=== PATIENT | male | born 1945 | race Caucasian/White ===

== ENCOUNTER 2020-04-17 09:40 | Emergency (ER) | payer MEDICARE, SELFPAY ==
--- NOTE | ~2020-04-17 | CT_ITS ---
EXAMINATION: CT abdomen pelvis w con DATE: 04/17/2020 10:45 INDICATION: Generalized abdominal pain. Constipation. TECHNIQUE: Computed tomography (CT) of the abdomen and pelvis was performed with 100 cc Omnipaque 350 intravenous contrast. Automated exposure control and iterative reconstruction technique were employe d. Exam dose: 1059.10 mGy-cm total exam DLP. COMPARISON: 01/16/2013 CT chest abdomen FINDINGS: Stable 4 mm pleural-based middle lobe nodular density, unchanged since 01/16/2013. Multiple calcified pulmonary granulomas. No infiltrate or consolidation in the lower lung zones. Mild emphysem atous changes. Heart size is normal. No pericardial or pleural effusion. No hepatic space-occupying mass lesion. There is a focal calcification at the gallbladder wall versus gallstone, stable since 01/16/2013. No gallbladder wall thickening. No pericholecystic fluid or stran ding. No bile duct dilatation. The pancreatic duct measures up to 5 mm. Up to 5.5 and 10 mm hypoenhancing areas in the pancreatic uncinate process may represent small pseudo cysts or intraductal papillary mucinous neoplasm, mucinous cystic neoplasm, left common common: serou s cystadenoma or neuroendocrine tumor. Normal morphology of the adrenal glands. Several up to 1.5 cm right renal cyst. Several up to 1.3 cm left renal cyst. At least one punctate nonobstructing renal calculus is suggeste d bilaterally. There are some arterial calcifications of the kidneys. No ureteral calculus. There is diffuse thickening of the urinary bladder wall. There is prostate enlargement and calcificat ions. Up to 3.8 cm fusiform infrarenal abdominal aortic aneurysm. Common iliac artery aneurysm measuring up to 3 cm diameter bilaterally. There is extensive calcificat ion of the iliac and femoral arteries. Small fat-containing left inguinal hernia. No bowel obstruction or bowel wall thickening, pneumatosis or intraperitoneal free air. Normal append ix. Status post L4-5 posterior surgical spinal fusion. No suspicious osteolytic or osteoblastic lesions are suggested. Small hemangioma of T12 vertebral bod y. IMPRESSION: Up to 3.8 cm fusiform infrarenal abdominal aortic aneurysm 3 cm bilateral common iliac artery aneurysms Gallbladder wall calcification versus less likely gallstone; consider gallbladder ultrasound for more definitive evaluation Up to 5.5 mm 10 mm hypoenhancing areas in the pancreatic uncinate process and multiple differential d iagnosis given above Bilateral renal cysts Probable small punctate calculus of each kidney Prostate enlargement and calcifications; diffuse thickening of the urinary bladder wall Emphysema Reviewed, dictated and finalized at [facility] Reviewed, dictated and finalized at [facility] [employer]IC[employer] IMPRESSION: Up to 3.8 cm fusiform infrarenal abdominal aortic aneurysm 3 cm bilateral common iliac artery aneurysms Gallbladder wall calcification versus less likely gallstone; consider gallbladd er ultrasound for more definitive evaluation Up to 5.5 mm 10 mm hypoenhancing areas in the pancreatic uncinate process and m ultiple differential diagnosis given above Bilateral renal cysts Probable small punctate calculus of each kidney Prostate enlargement and calcifications; diffuse thickening of the urinary blad corine wall Emphysema
--- NOTE | 2020-04-17 09:47 | ECG_ITS ---
Measurements Intervals [place] Rate: 77 P: 24 FL: 188 QRS: -2 QRSD: 106 T: 59 QT: 387 QTc: 440 Interpretive Statements SINUS RHYTHM WITH MARKED SINUS ARRHYTHMIA BORDERLINE ECG Electronically Signed On 04-17-2020 10:00:23 INTAKE ASSESSOR by Jed Tariq D.O.
[2020-04-17 10:03] VITALS: BP 113/75; PULSE 84; RESP 17; TEMP 36.6; O2SAT 96
[2020-04-17 10:07] VITALS: BP 133/71; PULSE 66; RESP 14; O2SAT 95
--- NOTE | 2020-04-17 10:07 | PC.NURSE ---
PT AWARE OF NEED FOR URINE SAMPLE, UNABLE TO GO AT THIS TIME, REFUSING CATH.
[2020-04-17 10:08] LABS: Basophils Percent Auto 0.7 % (0.2-1.2); Eosinophils Percent Auto 0.5 % (0-4.4); Hematocrit 40.3 % (42.0-52.0); Hemoglobin 13.9 g/dL (14.0-18.0); Immature Granulocyte Absolute 0.01 K/mm3 (0.00-0.031); Immature Granulocyte Percent A 0.2 % (0-0.5); Lymphocytes Absolute Auto 0.72 K/mm3 (0.9-3.2); Lymphocytes Percent Auto 12.7 % (18.3-44.2); Mean Corpuscular HGB Conc 34.5 g/dl (32-36); Mean Corpuscular Hemoglobin 31.3 pg (26-34); Mean Corpuscular Volume 90.8 fl (80-100); Mean Platelet Volume 11.3 fl (7.4-10.4); Monocytes Absolute Auto 0.6 K/mm3 (0.1-0.6); Monocytes Percent Auto 10.8 % (2.6-8.5); Neutrophils Absolute Auto 4.2 K/mm3 (1.3-6.7); Neutrophils Percent Auto 75.1 % (45.5-73.1); Platelet Count Result 147 k/mm3 (150-375); Red Blood Count 4.44 M/mm3 (4.6-6.20); Red Cell Distribution Width 12.8 % (11.5-14.5); White Blood Count 5.7 K/mm3 (4.5-10.0)
[2020-04-17 10:18] LABS: Alanine Aminotransferase 17 U/L (4-50); Albumin Level 3.6 g/dL (3.5-5.1); Alkaline Phosphatase 66 U/L (38-126); Anion Gap 4 mmol/L (8-16); Aspartate Amino Transferase 27 U/L (17-59); Blood Urea Nitrogen 13 mg/dL (9-20); Calcium 8.3 mg/dL (8.4-10.2); Carbon Dioxide 24 mmol/L (22-30); Chloride 103 mmol/L (98-107); Estimated CRCL calculation 71 ml/min; Estimated Glomerular Filt Rate > 60; Glucose 116 mg/dL (75-110); Lipase 104 U/L (23-300); Potassium 3.9 mmol/L (3.4-5.0); Sodium 131 mmol/L (137-145)
--- NOTE | 2020-04-17 10:35 | PC.NURSE ---
PT TO CT AT THIS TIME.
[2020-04-17 10:43] LABS: Add Urine Microscopic? YES; Appearance Urine Cloudy (Clear); Bacteria Urine 4+ /hpf; Bilirubin Urine Negative (Negative); Blood Urine 2+ (Negative); Color Urine Yellow (Yellow); Glucose Urine UA Negative (Negative); Ketones Urine Negative (Negative); Leukocyte Esterase Ur 3+ LEU/UL (Negative); Mucus Urine Heavy /lpf; Nitrate Urine Positive (Negative); Protein Urine 1+ mg/dL (Negative); RBC Urine 51-75 /hpf (0-2); Specific Grav Ur 1.015 (1.001-1.035); Squamous Epithelial Cell Urine Rare /hpf (Few); Urobilinogen Urine Negative mg/dL (<2.0); WBC Urine >75 /hpf
[2020-04-17] MEDS: SODIUM CHLORIDE 0.9% IV 500 ML 999 ML IV CONT (10:50)
[2020-04-17 10:57] VITALS: BP 156/82; PULSE 60; RESP 14; O2SAT 95
--- NOTE | 2020-04-17 10:58 | ED.ABDPAIN ---
HPI - Abdominal Pain General Chief Complaint: Abdominal Pain Stated Complaint: Constipation Time Seen by Provider: 04/17/20 10:25 Source: patient Mode of arrival: ambulatory Limitations: no limitations History of Present Illness HPI narrative: Patient is a 74-year-old male who presents to emergency department for evaluation of what is described as constipation for the last 4 days has been unable to have a bowel movement did take Ex-Lax and mag citrate last night has still not had a bowel movement patient is currently denying any pain notes that he did have right flank pain and right abdominal pain yesterday which resolved patient notes that he also had an episode of nausea patient notes that he had blood work performed by his primary care doctor in the recent past and was told he had a urinary tract infection has not started his medication for this. Patient denies any urinary symptoms rectal bleeding melena fever chills or sick contacts Related Data Allergies Allergy/AdvReac Type Severity Reaction Status Date / Time No Known Allergies Allergy Unverified 12/15/12 17:35 Review of Systems Review of Systems: All systems reviewed & are unremarkable except as noted in HPI and below PMFSH Past Medical History Medical History (Updated 04/17/20 @ 13:30 by Louie Juarez PA-C) Coronary artery disease Hyperlipidemia Hypertension Surgical History Surgical History (Updated 04/17/20 @ 10:59 by Louie Juarez PA-C) History of coronary angioplasty with insertion of stent Family History Family History (Updated 06/18/16 @ 23:56 by DOCTOR UNKNOWN) Sibling Patient's sister is in good health Patient's brother is in good health Mother Family history of congestive heart failure, Onset Age: 92 Patient's mother is Father Patient's father is Social History Social History (Updated 04/17/20 @ 10:59 by Louie Juarez PA-C) Smoking status: Never smoker Gender identity (if verbalized by the patient): Male Exam Narrative: Exam Narrative: GENERAL: Well-appearing, well-nourished, and in no acute distress. HEAD: Normocephalic, atraumatic. EYES: PERRLA and EOMI. ENT: Nares clear, no rhinorrhea or epistaxis. Mucous membranes moist. CHEST: Clear to auscultation. No respiratory distress. No wheezes rales or rhonchi HEART: Regular rate and rhythm. No murmur heard. Normal peripheral pulses. ABDOMEN: Soft, nontender, nondistended EXTREMITIES: Normal range of motion. No edema. SKIN: Warm, dry, no rash. NEURO: No focal deficits. Alert and oriented x3. Cranial nerves II through XII grossly intact PSYCH: Normal mood and affect. Course Course Emergency Course: Patient in the room at this time aware of case findings treatment plan diagnosis was hydrated given IV antibiotics will picker/puller the medications called in by his primary care doctor discussion was made with the [place] primary care doctor's office who will follow patient in clinic for the various CAT scan findings and for his urinary tract infection patient is adamant about going home noting that he feels much better at this time was able to get up and walk without difficulty is afebrile nontoxic-appearing no distress and denying any pain. Patient is also been provided with reasons to return and agrees to do so if symptoms worse Consultations Consultation #1: Discussed case with patient's [place] office nurse nursing manager Fareed she will follow the patient is aware of the case findings treatment plan diagnosis and will help facilitate setting up referrals for the CAT scan findings and urinary tract infection. Patient has antibiotics that are waiting for him at the pharmacy has been advised to pick them up. Patient is to call to set up appointment Date: 04/17/20 Time: 13:27 Vital Signs Vital signs: Vital Signs Temperature 97.9 F 04/17/20 10:03 Pulse Rate 84 04/17/20 10:03 Respiratory Rate 17 04/17/20 10:03 Blood Pressure 113/75
[2020-04-17 13:37] VITALS: BP 132/78; PULSE 70; RESP 18; O2SAT 99
== END 2020-04-17 13:39 | disposition home or self-care (01) ==
PROVIDERS: Emergency Provider Emergency Medicine
DX: N39.0 Urinary tract infection, site not specified (principal); D37.8 Neoplasm of uncertain behavior of other specified digestive organs; I71.4 Abdominal aortic aneurysm, without rupture; I10 Essential (primary) hypertension; E78.5 Hyperlipidemia, unspecified; I25.10 Atherosclerotic heart disease of native coronary artery without angina pectoris
CPT/HCPCS: 36415; 74177; 80053; 81001; 83690; 85025; 87077; 87086; 87088; 87186; 93005; 96365; 96367; 99284; J0131; J0696; J7040; Q9967

== ENCOUNTER 2020-05-03 02:17 | Emergency (ER) | payer MEDICARE, SELFPAY ==
--- NOTE | ~2020-05-03 | CT_ITS ---
EXAMINATION: CT abdomen pelvis w con INDICATION: Abdominal pain TECHNIQUE: Computed tomographic images of the abdomen and pelvis were obtained after the administrati on of 100 cc of Omnipaque 350 intravenous contrast. The dose-length product (DLP) was 1174.48 mGy-cm. Automated exposure control and iterative reconstruction technique were employed. COMPARISON: 04/17/2020, 01/16/2013 FINDINGS: Minimal dependent atelectasis is present in the lung bases. The heart size is normal. There is mild emphysema. The liver, spleen, and adrenal glands are normal. Cholelithiasis is noted. There is a 1.6 x 1.0 cm cystic lesion in the head of the pancreas with indeterminate communication with the main pancreatic duct. Cysts of the kidneys measure up to 1.6 cm on the right. An area of scarring is noted in the anterior cortex of the right kidney. There is a 2 mm nonobstructing stone of the left k idney lower pole. No pathologically enlarged abdominal or pelvic lymph nodes are identified. There is no free intraperitoneal gas or evidence of bowel obstruction. There is a 3.8 cm fusiform infrarenal abdominal aortic aneurysm. There is also fusiform enlargement of the common iliac arteries which lilliam ure up to 2.9 cm on the left and 3.1 cm on the right. A moderate volume of colonic stool is present. A tiny umbilical hernia containing fat is noted. There are changes of posterior fusion at L4-5. IMPRESSION: 1. Cholelithiasis without additional findings of cholecystitis. 2. Findings consistent with chronic pancreatitis. 3. Cystic lesion in the head of the pancreas measuring up to 1.6 cm. The differential diagnosis inclu guillermo pseudocyst, intraductal papillary mucinous neoplasm (IPMN), mucinous cystic neoplasm (MCN), and t he less common serous cystadenoma and neuroendocrine tumor. Correlate for history of pancreatitis. Fo llow-up MRI or CT without and with contrast in six months is recommended. 4. Left nephrolithiasis. 5. Fusiform infrarenal abdominal aortic aneurysm and fusiform enlargement of the proximal common caty c arteries. Reviewed, dictated and finalized at [facility] [employer] IMPRESSION: 1. Cholelithiasis without additional findings of cholecystitis. 2. Findings consistent with chronic pancreatitis. 3. Cystic lesion in the head of the pancreas measuring up to 1.6 cm. The differ ential diagnosis includes pseudocyst, intraductal papillary mucinous neoplasm ( IPMN), mucinous cystic neoplasm (MCN), and the less common serous cystadenoma a nd neuroendocrine tumor. Correlate for history of pancreatitis. Follow-up MRI o r CT without and with contrast in six months is recommended. 4. Left nephrolithiasis. 5. Fusiform infrarenal abdominal aortic aneurysm and fusiform enlargement of th e proximal common iliac arteries.
[2020-05-03 02:20] VITALS: BP 141/72; PULSE 55; RESP 20; TEMP 35.6; O2SAT 100
[2020-05-03] MEDS: SODIUM CHLORIDE 0.9% IV 1,000 ML 999 ML IV CONT (03:00)
[2020-05-03 03:16] LABS: Basophils Absolute Auto 0.1 K/mm3 (0.0-0.1); Basophils Percent Auto 1.3 % (0.2-1.2); Eosinophils Absolute Auto 0.1 K/mm3 (0-0.3); Eosinophils Percent Auto 2.4 % (0-4.4); Hemoglobin 13.4 g/dL (14.0-18.0); Immature Granulocyte Absolute 0.02 K/mm3 (0.00-0.031); Immature Granulocyte Percent A 0.4 % (0-0.5); Lymphocytes Absolute Auto 1.61 K/mm3 (0.9-3.2); Lymphocytes Percent Auto 34.6 % (18.3-44.2); Mean Corpuscular HGB Conc 34.4 g/dl (32-36); Mean Corpuscular Hemoglobin 31.5 pg (26-34); Mean Corpuscular Volume 91.8 fl (80-100); Mean Platelet Volume 10.9 fl (7.4-10.4); Monocytes Absolute Auto 0.4 K/mm3 (0.1-0.6); Monocytes Percent Auto 8.8 % (2.6-8.5); Neutrophils Absolute Auto 2.4 K/mm3 (1.3-6.7); Neutrophils Percent Auto 52.5 % (45.5-73.1); Platelet Count Result 194 k/mm3 (150-375); Red Blood Count 4.25 M/mm3 (4.6-6.20); Red Cell Distribution Width 12.5 % (11.5-14.5); White Blood Count 4.7 K/mm3 (4.5-10.0)
[2020-05-03 03:27] LABS: Lactic Acid Reflex 1.5 mmol/L (0.7-2.1)
[2020-05-03 03:34] LABS: Alanine Aminotransferase 19 U/L (4-50); Albumin Level 3.3 g/dL (3.5-5.1); Alkaline Phosphatase 56 U/L (38-126); Anion Gap 4 mmol/L (8-16); Aspartate Amino Transferase 27 U/L (17-59); Bilirubin,Total 0.5 mg/dL (0.2-1.3); Blood Urea Nitrogen 16 mg/dL (9-20); Calcium 8.2 mg/dL (8.4-10.2); Carbon Dioxide 27 mmol/L (22-30); Chloride 105 mmol/L (98-107); Estimated CRCL calculation 76 ml/min; Estimated Glomerular Filt Rate > 60; Glucose 119 mg/dL (75-110); Lipase 138 U/L (23-300); Sodium 136 mmol/L (137-145)
--- NOTE | 2020-05-03 04:13 | ED.GENADULT ---
HPI - General Adult General Chief complaint: Unspecified Stated complaint: constipation Time Seen by Provider: 05/03/20 02:35 History of Present Illness HPI narrative: Patient is 75-year-old gentleman who presents the emergency department with chief complaint of constipation. Patient reports that he was seen in the emergency department recently for abdominal discomfort had a CT scan and [facility] The patient states that he has not had a bowel movement other than a small one but has been passing gas. Patient states that his abdomen feels full and is noticed to have a bowel movement. Patient denies nausea denies vomiting Related Data Allergies Allergy/AdvReac Type Severity Reaction Status Date / Time No Known Allergies Allergy Unverified 05/03/20 02:26 Review of Systems Review of Systems: Narrative: A 10 system review of systems was completed on the patient and is negative except for what is stated in the HPI. Nursing and ancillary documentation was reviewed. [facility] Past Medical History Medical History Coronary artery disease Hyperlipidemia Hypertension Surgical History Surgical History History of coronary angioplasty with insertion of stent Family History Family History Sibling Patient's sister is in good health Patient's brother is in good health Mother Family history of congestive heart failure, Onset Age: 92 Patient's mother is Father Patient's father is Social History Social History Smoking status: Never smoker Gender identity (if verbalized by the patient): Male Exam Narrative: Exam Narrative: GENERAL: Well-appearing, well-nourished, and in no acute distress. HEAD: Normocephalic, atraumatic. EYES: PERRLA and EOMI. ENT: Nares clear, no rhinorrhea or epistaxis. Mucous membranes moist. NECK: Supple. CHEST: Clear to auscultation. No respiratory distress. HEART: Regular rate and rhythm. No murmur heard. Normal peripheral pulses. ABDOMEN: Soft, nontender, nondistended, normal active bowel sounds. : Rectal exam showed soft brown stool in the rectal vault there was no fecal impaction noted EXTREMITIES: Normal range of motion. No edema. SKIN: Warm, dry, no rash. NEURO: No focal deficits. Alert and oriented x3. PSYCH: Normal mood and affect. Course Course Emergency Course: CT scan of the abdomen pelvis showed evidence of a large stool burden there is no evidence of a rectal fecal impaction. Vital Signs Vital signs: Vital Signs Temperature 35.6 C L 05/03/20 02:20 Pulse Rate 55 L 05/03/20 02:20 Respiratory Rate 20 05/03/20 02:20 Blood Pressure 141/72 H 05/03/20 02:20 Pulse Oximetry 100 05/03/20 02:20 Temperature 35.6 C L 05/03/20 02:20 Pulse Rate 71 05/03/20 04:41 Respiratory Rate 19 05/03/20 04:41 Blood Pressure 138/89 05/03/20 04:41 Pulse Oximetry 97 05/03/20 04:41 Medical Decision Making Vital Signs Vital Signs: Vital Signs Temperature 35.6 C L 05/03/20 02:20 Pulse Rate 55 L 05/03/20 02:20 Respiratory Rate 20 05/03/20 02:20 Blood Pressure 141/72 H 05/03/20 02:20 Pulse Oximetry 100 05/03/20 02:20 Temperature 35.6 C L 05/03/20 02:20 Pulse Rate 71 05/03/20 04:41 Respiratory Rate 19 05/03/20 04:41 Blood Pressure 138/89 05/03/20 04:41 Pulse Oximetry 97 05/03/20 04:41 Lab Data Result diagrams: 05/03/20 03:00 05/03/20 03:00 Labs: Lab Results 05/03/20 05/03/20 05/03/20 Range/Units 03:00 03:00 03:00 WBC 4.7 (4.5-10.0) K/mm3 RBC 4.25 L (4.6-6.20) M/mm3 Hgb 13.4 L (14.0-18.0) g/dL Hct 39.0 L (42.0-52.0) % MCV 91.8 (80-100) fl MCH 31.5 (26-34) pg MCHC
[2020-05-03 04:41] VITALS: BP 138/89; PULSE 71; RESP 19; O2SAT 97
[2020-05-03] MEDS: MAGNESIUM CITRATE 300 ML BTL PO (05:33)
[2020-05-03 05:35] VITALS: BP 149/88; PULSE 51; RESP 16; TEMP 36.9; O2SAT 99
== END 2020-05-03 05:37 | disposition home or self-care (01) ==
PROVIDERS: Emergency Provider Emergency Medicine
DX: K59.00 Constipation, unspecified (principal); R10.84 Generalized abdominal pain; I25.10 Atherosclerotic heart disease of native coronary artery without angina pectoris; E78.5 Hyperlipidemia, unspecified; I10 Essential (primary) hypertension; Z95.5 Presence of coronary angioplasty implant and graft
CPT/HCPCS: 36415; 74177; 80053; 83605; 83690; 85025; 96360; 99284; A9270; J7030; Q9967

== ENCOUNTER 2021-07-09 14:13 | Observation (INO) | payer MEDICARE, SELFPAY ==
[2021-07-09] VITALS (19 sets, daily range): BP systolic 78–182; BP diastolic 50–82; PULSE 39–57; RESP 0–19; TEMP 36.2; O2SAT 96–100; BMI 28.7
--- NOTE | ~2021-07-09 | CT_ITS ---
EXAMINATION: CT chest abdomen pelvis w con DATE: 07/09/2021 16:15 INDICATION: Abdominal pain. TECHNIQUE: Computed tomography (CT) of the chest, abdomen, and pelvis was performed with 100 mL Omnip aque-350 intravenous contrast. Automated exposure control and iterative reconstruction technique were employed. The dose-length product was 1475.75 mGy-cm. COMPARISON: CT abdomen and pelvis dated 05/03/2020 FINDINGS: CHEST CT: Mild emphysema. Mild dependent atelectasis in the bilateral lower lobes. Innumerable scattered tiny c alcified nodules throughout both lungs consistent with old granulomatous disease. No pulmonary edema or pleural effusion. Heart size is normal. Atherosclerotic coronary artery calcific location. No sadaf cardial effusion. Thoracic aorta is normal in caliber with no dissection. No pathologically enlarged thoracic lymphadenopathy. Chronic minimal anterior wedging of a few mid thoracic vertebral bodies. ABDOMEN/PELVIS CT: Tiny calcified gallstones versus focal mural calcification near the neck of the otherwise normal-appe aring gallbladder. Liver, spleen and bilateral adrenal glands are normal. Bilateral renal cysts the l argest on the right measuring 1.9 cm. Small region of cortical scarring at the upper pole of the righ t kidney. 2 mm nonobstructing stone at a lower pole calyx of the left kidney. A few additional small atherosclerotic calcifications centimeters with the renal arteries at the bilateral renal abraham. There is mild dilation of the main pancreatic duct which measures 4 mm the body of the pancreas along with several dilated pancreatic ductal side branches particularly at the head of the pancreas where there are also few dystrophic calcifications. Constellation of findings most consistent with sequela of ch ronic pancreatitis. Bowels including the appendix are normal. There is diffuse mild bladder wall thic kening due to at least in part to incomplete distention although the disc also be related to chronic outlet obstruction from the enlarged prostate. Finally there is also some haziness to the surrounding fat and differential would also include cystitis. Small fat-containing left inguinal hernia. No free intraperitoneal gas or fluid. No pathologically enlarged abdominal or pelvic lymphadenopathy. There is calcified atherosclerosis of the aorta and many of the other arteries. 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 There are also fusiform aneurysms of the bilateral common iliac arteries, each measuring up to 3.2 cm in maximal diameter. L4-L5 poste rior spinal fusion with bilateral vertical donnell and pedicle screw fixation. IMPRESSION: 1. Mild emphysema. 2. 2 mm nonobstructing left nephrolithiasis. 3. Possible tiny calcified gallstone versus mural calcification. 4. Stigmata of chronic pancreatitis 5. Lateral wall thickening with some haziness to the surrounding fat raising suspicion for cystitis w ith differential including sequela of chronic outlet obstruction from the enlarged prostate. Correlat e with urinalysis. 6. These form aneurysms measuring 4.2 cm infrarenal aorta and 3.2 cm both the left and right common i liac arteries. Separate small fat-containing left inguinal hernia. Reviewed, dictated and finalized at location B. IMPRESSION: 1. Mild emphysema. 2. 2 mm nonobstructing left nephrolithiasis. 3. Possible tiny calcified gallstone versus mural calcification. 4. Stigmata of chronic pancreatitis 5. Lateral wall thickening with some haziness to the surrounding fat raising doyle spicion for cystitis with differential including sequela of chronic outlet obst ruction from the enlarged prostate. Correlate with urinalysis. 6. These form aneurysms measuring 4.2 cm infrarenal aorta and 3.
--- NOTE | ~2021-07-09 | CT_ITS ---
EXAMINATION: CT brain wo con DATE: 07/09/2021 16:13 INDICATION: Dizziness TECHNIQUE: Computed tomography (CT) of the head was performed without intravenous contrast. Sagittal and coronal reconstructions were performed. The mA was adjusted according to patient size. Iterative reconstruction technique was employed. The dose-length product was 605.33 mGy-cm. COMPARISON: head CT dated 09/08/2014 and brain MR dated 09/09/2014 FINDINGS: No acute intracranial hemorrhage, acute infarction or abnormal extra axial fluid collection. There is mild scattered white matter hypoattenuation consistent with chronic small vessel ischemic disease. S ymmetric prominence of the sulci consistent with mild age-appropriate diffuse cerebral volume loss. V entricles are normal and symmetric. No mass/mass effect. The orbits, paranasal sinuses and mastoid ai r cells are normal. IMPRESSION: 1. No acute intracranial process. 2. Age-related changes including mild diffuse volume loss and mild scattered white matter hypoattenua tion consistent with chronic small vessel ischemic disease. Reviewed, dictated and finalized at location B. IMPRESSION: 1. No acute intracranial process. 2. Age-related changes including mild diffuse volume loss and mild scattered wh ite matter hypoattenuation consistent with chronic small vessel ischemic diseas e.
--- NOTE | 2021-07-09 15:16 | ECG_ITS ---
Measurements Intervals [place] Rate: 54 P: 28 NM: 190 QRS: -6 QRSD: 107 T: 64 QT: 433 QTc: 414 Interpretive Statements SINUS BRADYCARDIA COMPARED TO ECG 04/17/2020 09:53:24 SINUS BRADYCARDIA NOW PRESENT Electronically Signed On 07-09-2021 20:56:10 CDT by Dora Dawn M.D.
[2021-07-09] MEDS: SODIUM CHLORIDE 0.9% IV 1,000 ML 999 ML IV CONT (15:37)
[2021-07-09 15:43] LABS: Basophils Absolute Auto 0.1 K/mm3 (0.0-0.1); Basophils Percent Auto 1.4 % (0.2-1.2); Eosinophils Absolute Auto 0.2 K/mm3 (0-0.3); Eosinophils Percent Auto 3.5 % (0-4.4); Hematocrit 39.9 % (42.0-52.0); Hemoglobin 13.3 g/dL (14.0-18.0); Immature Granulocyte Absolute 0.02 K/mm3 (0.00-0.031); Immature Granulocyte Percent A 0.4 % (0-0.5); Lymphocytes Absolute Auto 1.71 K/mm3 (0.9-3.2); Mean Corpuscular HGB Conc 33.3 g/dl (32-36); Mean Corpuscular Hemoglobin 31.1 pg (26-34); Mean Corpuscular Volume 93.4 fl (80-100); Mean Platelet Volume 11.4 fl (7.4-10.4); Monocytes Absolute Auto 0.6 K/mm3 (0.1-0.6); Monocytes Percent Auto 12.1 % (2.6-8.5); Neutrophils Absolute Auto 2.3 K/mm3 (1.3-6.7); Neutrophils Percent Auto 47.6 % (45.5-73.1); Platelet Count Result 165 k/mm3 (150-375); Red Blood Count 4.27 M/mm3 (4.6-6.20); White Blood Count 4.9 K/mm3 (4.5-10.0)
[2021-07-09 15:54] LABS: Alanine Aminotransferase 16 U/L (4-50); Albumin Level 3.6 g/dL (3.5-5.1); Alkaline Phosphatase 59 U/L (38-126); Anion Gap 4 mmol/L (8-16); Aspartate Amino Transferase 31 U/L (17-59); Bilirubin,Total 0.8 mg/dL (0.2-1.3); Blood Urea Nitrogen 17 mg/dL (9-20); Calcium 8.8 mg/dL (8.4-10.2); Carbon Dioxide 25 mmol/L (22-30); Chloride 106 mmol/L (98-107); Estimated CRCL calculation 62 ml/min; Estimated Glomerular Filt Rate > 60; Glucose 115 mg/dL (65-110); Potassium 3.7 mmol/L (3.4-5.0); Sodium 135 mmol/L (137-145)
[2021-07-09 16:01] LABS: Lactic Acid Reflex 1.5 mmol/L (0.7-2.0)
[2021-07-09 16:08] LABS: CRP < 0.5 mg/dL (<1.0)
--- NOTE | 2021-07-09 16:10 | ED.DIZZY ---
HPI - Dizziness General Chief Complaint: Dizziness Stated Complaint: dizziness Time Seen by Provider: 07/09/21 15:25 Source: patient Mode of arrival: EMS Limitations: no limitations History of Present Illness HPI Narrative: Patient is a 76-year-old male complaining of dizziness and generalized weakness for the past few days. Patient upon arrival had low blood pressure and low heart rate, blood pressure 90s over 50s and a heart rate in the 40s. Patient on metoprolol and doxazosin, both can lower the heart rate and blood pressure. Patient denies any speech or visual disturbance, focal weakness or numbness, chest pain, shortness of breath, abdominal pain, nausea, vomiting, diarrhea, urinary symptoms, fever or chills. Patient states that he was diagnosed with pancreatic cancer last year but was told that they would just watch it and no treatment needed at this time. Related Data Allergies Allergy/AdvReac Type Severity Reaction Status Date / Time No Known Allergies Allergy Verified 07/09/21 16:20 Review of Systems Review of Systems: All systems reviewed & are unremarkable except as noted in HPI and below Constitutional: Constitutional: Denies body ache(s), Denies chills, Denies excessive sweating, Denies fatigue, Denies fever(s), Denies headache(s), Denies lethargy, Denies malaise, Denies weakness and Denies weight loss Eyes: Eyes: Denies blurry vision, Denies change in vision and Denies loss of vision ENT: Denies dizziness, Denies ear discharge, Denies headache(s), Denies lip swelling, Denies epistaxis, Denies nasal congestion, Denies neck pain, Denies throat swelling and Denies tongue swelling Cardiovascular: Cardiovascular: Denies chest pain, Denies chest pain at rest, Denies chest pain with activity, Denies diaphoresis, Denies rapid heart rate, Denies edema, Denies irregular heart rhythm, Denies lightheadedness, Denies palpitations, Denies dyspnea and Denies dyspnea on exertion Respiratory: Respiratory: Denies chest congestion, Denies cough, Denies hemoptysis, Denies dyspnea and Denies dyspnea on exertion Gastrointestinal: Gastrointestinal: Denies abdominal pain, Denies melena, Denies hematochezia, Denies diarrhea, Denies nausea, Denies vomiting and Denies hematemesis Musculoskeletal: Musculoskeletal: Denies deformity, Denies joint swelling, Denies limited range of motion, Denies neck pain and Denies numbness Neurologic: Denies Abnormal speech present, Denies confusion, Denies headache(s), Denies focal weakness, Denies loss of vision, Denies numbness, Denies Other visual disturbances, Denies Sensory deficit (Neuro) and Denies weakness Psychiatric: Psychiatric: Denies confusion, Denies depression, Denies auditory hallucinations, Denies homicidal ideation and Denies suicidal ideation Endocrine: Endocrine: Denies cold intolerance, Denies excessive sweating, Denies fatigue, Denies heat intolerance and Denies palpitations Hematologic/Lymphatic: Hematologic/Lymphatic: Denies easy bleeding and Denies easy bruising Allergic/Immunologic: Allergic/Immunologic: Denies lip swelling, Denies throat swelling and Denies tongue swelling PMFSH Past Medical History Medical History Coronary artery disease Hyperlipidemia Hypertension Surgical History Surgical History History of coronary angioplasty with insertion of stent Family History Family History Sibling Patient's sister is in good health Patient's brother is in good health Mother Family history of congestive heart failure, Onset Age: 92 Patient's mother is Father Patient's father is Social History Social History Smoking status: Never smoker Gender identity (if verbalized by the patient): Male Exam Const: General:
[2021-07-09 16:18] LABS: Troponin I < 0.012 ng/mL (0.000-0.034)
[2021-07-09 16:52] LABS: INR 1.2; Prothrombin Time 14.6 Seconds (11.1-14.7)
[2021-07-09 16:53] LABS: Partial Thromboplastin Time 30.7 SECONDS (22.3-36.8)
--- NOTE | 2021-07-09 19:42 | PM.IMHP ---
H&P: HPI History of Present Illness Date/Time: 07/09/21 19:42 Chief Complaint: Near-syncope Narrative: This is a 76-year-old male with past medical history significant for dyslipidemia, tobacco dependence, patient is currently on Nicorette patch and smokes 6-8 cigarettes in a day down from 1 pack daily. 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 Patient denies any fevers, rigors, chills, cough, sputum production, leg swelling, ankle swelling, however feels that he has decreased stamina. Preliminary workup was significant for a heart rate in the 30s and blood pressure with systolic in the 90s. Patient takes metoprolol and doxazosin at home he had taken his daily dose of both. Patient has been admitted for further evaluation, management and treatment. Review of Systems Review of Systems: Near-syncope, dizziness, decreased stamina. Constitutional: Constitutional: Denies chills, Denies fatigue, Denies fever(s), Reports lethargy, Denies malaise, Denies night sweats, Denies poor appetite and Reports weakness Eyes: Eyes: Denies change in vision ENT: Denies dysphagia, Denies nasal discharge and Denies nasal obstruction Cardiovascular: Cardiovascular: Denies pedal edema, Denies claudication, Denies leg ulcers, Denies leg edema, Reports lightheadedness, Denies radiating jaw, neck or arm pain, Denies palpitations, Denies dyspnea on exertion, Denies orthopnea and Denies paroxysmal nocturnal dyspnea Comments: Near-syncope Respiratory: Respiratory: Denies cough Gastrointestinal: Gastrointestinal: Denies abdominal pain, Denies dyspepsia, Denies heartburn, Denies diarrhea, Denies nausea and Denies vomiting Genitourinary: Genitourinary: Denies dysuria Musculoskeletal: Musculoskeletal: Denies arthralgias, Denies joint swelling and Reports muscle weakness Integumentary/Breasts: Skin/Breast: Denies rash Neurologic: Denies focal weakness and Denies Sensory deficit (Neuro) Psychiatric: Psychiatric: Reports no additional psychiatric complaints and Reports as per HPI Endocrine: Endocrine: Denies cold intolerance, Denies fatigue, Denies heat intolerance, Denies polyphagia, Denies polydipsia and Denies palpitations Hematologic/Lymphatic: Hematologic/Lymphatic: Reports no additional hematologic/lymphatic complaints and Reports as per HPI Allergic/Immunologic: Allergic/Immunologic: Reports no additional allergic/immunologic complaints and Reports as per HPI PMFSH Past Medical History Medical History Coronary artery disease Hyperlipidemia Hypertension Surgical History Surgical History History of coronary angioplasty with insertion of stent Family History Family History Sibling Patient's sister is in good health Patient's brother is in good health Mother Family history of congestive heart failure, Onset Age: 92 Patient's mother is Father Patient's father is Social History Social History Smoking packs per day: 1 Smoking cigarettes per day: 20.0 Years smoked: 53 Smoking pack-years: 53.00 Smoking status: Current every day smoker Alcohol intake: current Substance use: never Substance use type: does not use Gender identity (if verbalized by the patient): Male Spiritual care concerns: No Meds Home Medications and Allergies Home Medications Medication Instructions Recorded Confirmed Type aspirin 81 mg PO DAILY 07/09/21 07/09/21
--- NOTE | 2021-07-09 20:00 | PC.NURSE ---
This patient, Ronnie Bruner, was admitted to IMU Room 207-01. Patient/family oriented to hospital policies and general routines including ID bracelet, bed and alarms, visiting hours, pain management, procedures, bathroom and other care routines, personal items, smoking policy, room service/diet, and visiting hours. Information on how to activate the Rapid Response Team has been discussed. Patient/Family are encouraged to report perceived risks to care and to ask questions if they do not understand what they are told or what they should do.
[2021-07-09] MEDS: LACTATED RINGERS 1,000 ML 90 ML IV CONT (21:05)
[2021-07-09 21:27] LABS: Add Urine Microscopic? YES; Appearance Urine Cloudy (Clear); Bacteria Urine 1+ /hpf; Bilirubin Urine Negative (Negative); Blood Urine 1+ (Negative); Color Urine Yellow (Yellow); Glucose Urine UA Negative (Negative); Ketones Urine Negative (Negative); Leukocyte Esterase Ur 3+ LEU/UL (Negative); Mucus Urine Rare /lpf; Nitrate Urine Positive (Negative); Protein Urine Negative (Negative); Specific Grav Ur 1.028 (1.001-1.035); Squamous Epithelial Cell Urine Rare /hpf (Few); Urobilinogen Urine Negative mg/dL (<2.0); WBC Urine 31-50 /hpf
[2021-07-10] VITALS (9 sets, daily range): BP systolic 126–171; BP diastolic 56–78; PULSE 46–68; RESP 14–18; TEMP 36.2–37.1; O2SAT 98–100
[2021-07-10] MEDS: LACTATED RINGERS 1,000 ML 90 ML IV CONT (08:21)
[2021-07-10] MEDS: ASPIRIN 81 MG ENTERIC TABLET PO (08:22)
[2021-07-10] MEDS: ENOXAPARIN 40 MG/0.4 ML SYRINGE SUB-Q (08:22)
--- NOTE | 2021-07-10 08:24 | PM.IMPN ---
Progress Note: A&P Additional Plan (1) Symptomatic bradycardia: Code(s): R00.1 - Bradycardia, unspecified Status: Acute Assessment and Plan: Likely secondary to metoprolol which is placed on hold Continuous telemetry Has been seen by the product manager financial services, he agreed to stopping the metoprolol, ambulate the patient and if there is no dizziness then he can be discharged home today with office follow up. I spoke to his nurse to consult PT/OT to assess and ambulate the patient. (2) Dizziness: Code(s): R42 - Dizziness and giddiness Status: Acute Assessment and Plan: Likely secondary to bradycardic episode Continue to monitor (3) Acute hypotension: resolved Code(s): I95.9 - Hypotension, unspecified Status: Acute Assessment and Plan: Patient receiving fluids, BP is now 155/78 mmhg. Holding home meds (4) Tobacco dependence due to cigarettes: Code(s): F17.210 - Nicotine dependence, cigarettes, uncomplicated Status: Acute Assessment and Plan: Patient is currently on Nicorette patch (5) Acute UTI: -urinalysis with pyuria -on IV ceftriaxone daily. Time Spent With Patient Time with patient: 15 - 25 minutes Subjective Date/time seen: 07/10/21 08:24 Patient seen lying comfortably in bed. He endorses feeling better and has had no further dizziness. He does state that he is yet to ambulate. Exam Const: General: cooperative, comfortable and no acute distress Resp: Effort & Inspection: normal respiratory effort and able to speak in complete sentences Auscultation: clear to auscultation bilaterally Cardio: Rate: bradycardic Heart sounds: S1 normal heart sound present and S2 normal heart sound present GI: Inspection: normal to inspection GI Palp: No abdominal tenderness Auscultation: normal bowel sounds Neuro: General: oriented to person, oriented to place, oriented to time and patient oriented x3 Extrem: General: normal to inspection Objective Data Vital Signs Vital Signs: Vital Signs - 24 hr 07/09/21 15:16 07/09/21 15:28 07/09/21 16:15 Temperature 97.1 F L Pulse Rate 51 L 54 L 46 L Respiratory Rate 19 16 15 Blood Pressure 98/55 L 78/50 L 134/72 Pulse Oximetry 98 96 99 07/09/21 16:17 07/09/21 16:18 07/09/21 16:45 Temperature Pulse Rate 42 L 40 L 42 L Respiratory Rate 8 L 10 L Blood Pressure 134/72 138/65 Pulse Oximetry 99 98 98 07/09/21 17:01 07/09/21 17:12 07/09/21 17:13 Temperature Pulse Rate 40 L 41 L 39 L Respiratory Rate 8 L 15 0 L Blood Pressure 141/77 H 141/77 H Pulse Oximetry 98 98 98 07/09/21 17:15 07/09/21 17:16 07/09/21 17:17 Temperature Pulse Rate 39 L 47 L 44 L Respiratory Rate 8 L 14 9 L Blood Pressure 143/74 H 143/74 H Pulse Oximetry 98 97 100 07/09/21 17:30 07/09/21 17:50 07/09/21 18:06 Temperature Pulse Rate 42 L 46 L 55 L Respiratory Rate 8 L 13 15 Blood Pressure Pulse Oximetry 99 100 07/09/21 18:50 07/09/21 19:18 07/09/21 20:00 Temperature 97.1 F L Pulse Rate 56 L 50 L 52 L Respiratory Rate 17 14 15 Blood Pressure 155/82 H 143/76 H 182/75 H Pulse Oximetry 98 98 100 07/09/21 22:00 07/10/21 00:00 07/10/21 02:00 Temperature 97.1 F L Pulse Rate 43 L 50 L 50 L Respiratory Rate 18 Blood Pressure 148/56 H Pulse Oximetry 99 07/10/21 04:00 07/10/21 04:33 07/10/21 06:00 Temperature 98.8 F Pulse Rate 52 L 54 L Respiratory Rate 16 Blood Pressure 155/78 H Pulse Oximetry 100 98 Intake/Output Intake/Output: Intake & Output 07/07/21 07/08/21 07/09/21 07/10/21 23:59 23:59 23:59 23:59 Intake Total 3900 1200 Output Total 350 1825 Balance 3550 -625 Meds/Results Medications: Active Medications Generic Name Dose Route Start Last Admin Trade Name Freq PRN Reason Stop Dose Admin Aspirin 81 mg 07/10/21 09:00 07/10/21 08:22 Aspirin 81 Mg Enteric Tablet PO 08/09/21 08:59 81 mg DAILY LEVI Administration Enoxaparin Sodium 4
--- NOTE | 2021-07-10 08:46 | PM.CNCAR ---
Assessment and Plan Additional Plan 76-year-old man appears to have symptomatic bradycardia with sinus bradycardia of recent onset. He was not bradycardic when I have seen him in the past in the office or in previous follow-up appointments. At this point the only significant recommendation is to stop the beta-brigid. That has already been done his heart rate is in the 60s and his blood pressure is slightly elevated this morning. I would recommend getting him out of bed and ambulate in the halls. If he is stable and not having further problems with Sagar arrhythmias I believe he can be discharged for outpatient follow-up. Because of the family issues I mentioned above he would like to spend a minimum amount of time in the hospital. If he has recurrent Sagar arrhythmias that are problematic/symptomatic before discharge let me know otherwise I would suggest discharging him later this afternoon as long as he is able to get up and ambulate without problems. Oscar Vega MD [facility] History of Present Illness History of Present Illness Consult date/time: 07/10/21 08:46 Consult reason: Other (Bradycardia) Reason For Visit: Symptomatic bradycardia Narrative: This is a very pleasant 76-year-old man that I am seeing at the request of the hospitalist because of symptomatic bradycardia. The patient is known to me with a longstanding history of some chronic stable coronary artery disease. He was last seen in my office in December of 2020 was doing well at that time. He noticed that recently probably for a couple of weeks or so he is feeling sense of dizziness and weakness in his legs when he tries to get up and ambulate. He denies any since of his presyncope or any syncopal episodes. He has has never had a syncopal event that he can recall. He came to the emergency room last evening because of these symptoms and was found to be bradycardic. Apparently his heart rate in the emergency room was getting as low as into the 40s. He was admitted to the IMU for further evaluation. The electrocardiogram shows sinus bradycardia there is no evidence of AV node dysfunction. The patient has been on a modest dose of metoprolol for his chronic coronary artery disease as well as hypertension. Obviously the metoprolol has been stopped. This morning his heart rate is 65 sinus rhythm his systolic blood pressure has been running in the 140-150 range this morning. He offers no other cardiovascular complaints he is not having any sense of exertional chest pain he is not experiencing any orthopnea PND or lower extremity edema. His history of coronary artery disease dates back to December of 2012 when he came into the hospital with ischemic chest pain/acute coronary syndrome. He was brought to the cardiac catheterization lab and found to have high-grade stenosis in the LAD which was treated successfully receiving a 3.5 x 15 mm Xience stent with a good anatomical result. His other significant comorbidity is sleep apnea he does use a CPAP device regularly. 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 Because of these issues he would like to get out of the hospital as soon as possible. Review of Systems Constitutional: Constitutional: Reports no additional constitutional complaints Eyes: Eyes: Reports no additional eye complaints ENT: Reports system reviewed and no additional complaints, except as documented Cardiovascular: Cardiovascular: Reports no additional cardiovascular complaints Respiratory: Respiratory: Reports no additional respiratory complaints Gastrointestinal: Gastrointestinal: Reports no additional gastrointestinal complaints Musculoskeletal: Musculoskeletal: Reports no additional musculoskeletal complaints Integumentary/Breasts: Skin/Breast: Reports system reviewed and no additi
[2021-07-10 10:15] LABS: Estimated CRCL calculation 62 ml/min; Estimated Glomerular Filt Rate > 60
--- NOTE | 2021-07-10 11:58 | PM.DS ---
DS: Admitting Diagnosis Discharge Date 07/10/2021 Admitting Diagnosis #Symptomatic bradycardia #Dizziness #Hypotension #Tobacco dependent. DS: Discharge Diagnosis Discharge Diagnosis (1) Symptomatic bradycardia: Code(s): R00.1 - Bradycardia, unspecified Status: Acute (2) Acute UTI: Code(s): N39.0 - Urinary tract infection, site not specified Status: Acute (3) Dizziness: Code(s): R42 - Dizziness and giddiness Status: Acute (4) Acute hypotension: Code(s): I95.9 - Hypotension, unspecified Status: Acute (5) Tobacco dependence due to cigarettes: Code(s): F17.210 - Nicotine dependence, cigarettes, uncomplicated Status: Acute DS: Summary Hospital Course Hospital Course: 76-year-old male with dyslipidemia, tobacco dependence, patient is currently on Nicorette patch and smokes 6-8 cigarettes in a day down from 1 pack daily. He presented to the emergency room after he had a near syncopal episode in which he became very dizzy and had unstable gait he denied any diaphoresis, shortness of breath, chest pain, palpitations, patient states that he has been under lot of stress at home as he is the main caregiver of his who has Alzheimer's dementia and his daughter who has bipolar disorder. Patient denied any fevers, rigors, chills, cough, sputum production, leg swelling, ankle swelling, however feels that he has decreased stamina. Preliminary workup was significant for a heart rate in the 30s and blood pressure with systolic in the 90s. Patient takes metoprolol and doxazosin at home he had taken his daily dose of both on the day of presentation. Patient was admitted for further evaluation, management and treatment. Presentation with dizziness was related to symptomatic bradycardia, likely secondary to metoprolol hence it was placed on hold. He was monitored on continuous telemetry, no pauses were noted. The billiard player was consulted, he agreed to stopping the metoprolol, recommended to ambulate the patient and if there is no dizziness then he can be discharged home today 07/10/2021 with office follow up. The patient was ambulated and he had no dizziness and endorsed feeling better. Asked to be discharged home. Acute hypotension present on admission was managed with IV fluids, BP improved to 155/78 mmhg prior to discharge. He was managed with IV ceftriaxone daily given his urinalysis that was significant with pyuria. Discharged home with PO cephalexin 500mg BID for 5 days. PO metoprolol was discontinued, patient is to follow up with PCP and billiard player in the office. Time Spent with Patient Time attestation: Total time spent providing and/or coordinating discharge services: 40 minutes Exam Const: General: cooperative, comfortable and no acute distress Chest: Chest palpation & inspection: normal inspection of the chest Resp: Effort & Inspection: normal respiratory effort and able to speak in complete sentences Auscultation: clear to auscultation bilaterally Cardio: Rate: bradycardic Heart sounds: S1 normal heart sound present and S2 normal heart sound present GI: GI Palp: No abdominal tenderness and Yes Soft to palpation Auscultation: normal bowel sounds Skin: General skin exam: normal color and no rashes or lesions noted Neuro: General: oriented to person, oriented to place, oriented to time, patient oriented x3, gait normal, moves all extremities and no focal motor deficits Extrem: General: normal to inspection and full ROM DS: Data Data Completed and Pending Labs on day of discharge: Labs from last 24 hours 07/09/21 07/09/21 07/09/21 21:11 15:54 15:36 WBC RBC Hgb Hct MCV MCH MCHC RDW Plt Count MPV Immature Gran % (Auto) Neut % (Auto) Lymph % (Auto) Wright % (Auto) Eos % (Auto) Baso % (Auto) Lymph # (Auto) Wright # (Auto) Eos # (Auto) Baso # (Auto) Abs Immat Gran (auto) Absolute Neuts (a
== END 2021-07-10 14:15 | disposition home or self-care (01) ==
LOC: ANHED 17:25 → ANHIMU 18:37
PROVIDERS: Emergency Medicine; Admitting Provider Internal Medicine; Emergency Provider Emergency Medicine; Visit Provider Internal Medicine
DX: R00.1 Bradycardia, unspecified (principal); I95.9 Hypotension, unspecified; N39.0 Urinary tract infection, site not specified; I25.10 Atherosclerotic heart disease of native coronary artery without angina pectoris; I10 Essential (primary) hypertension; C25.9 Malignant neoplasm of pancreas, unspecified; E78.5 Hyperlipidemia, unspecified; G47.30 Sleep apnea, unspecified; F17.210 Nicotine dependence, cigarettes, uncomplicated; Z95.5 Presence of coronary angioplasty implant and graft
CPT/HCPCS: 36415; 70450; 71260; 74177; 80053; 81001; 83605; 84484; 85025; 85610; 85730; 86140; 87040; 87077; 87086; 87186; 93005; 96361; 96365; 96372; 97161; 97165; 99285; A9270; G0378; G0379; J0696; J1650; J7030; J7120; Q9967

== ENCOUNTER 2025-02-11 16:04 | Observation (INO) | payer MEDICARE, OTHER, SELFPAY ==
[2025-02-11] VITALS (13 sets, daily range): BP systolic 106–159; BP diastolic 57–126; PULSE 54–68; RESP 11–20; TEMP 36.6; O2SAT 98–100
--- NOTE | ~2025-02-11 | CT_ITS ---
EXAMINATION: CTA abdomen pelvis DATE: 02/12/2025 00:55 INDICATION: Gastrointestinal hemorrhage. TECHNIQUE: Computed tomographic angiography (CTA) of the abdomen and pelvis was performed with 100 mL Omnipaque-350 intravenous contrast. Automated exposure control and iterative reconstruction technique were employed. The dose-length product was 693.31 mGy-cm. Maximum intensity projection 3D-reconstructions of the aorta and other arteries were constructed by the technologist on a separate workstation. COMPARISON: CT abdomen and pelvis 07/09/2021 FINDINGS: The visualized portions of the lung bases demonstrate emphysema and mild atelectasis. Calcified pulmonary nodules are consistent with old granulomatous disease. There is a 4 mm nodule in left lower lobe, likely benign. No pleural effusion. The heart size is normal. No pericardial effusion. There are coronary artery calcifications. There is a small sliding hiatal hernia. The gallbladder is distended. The liver and spleen are normal. There are calcifications and cystic lesions in the pancreas and mild dilatation of the pancreatic duct, consistent with chronic pancreatitis. The adrenal glands are normal. There are cysts in the kidneys measuring up to 2.9 cm on the right. There is a 3.4 cm staghorn calculus in right kidney. There is cortical thinning of the kidneys. The prostate is moderately enlarged. There is diffuse bladder wall thickening, likely secondary to chronic outlet obstruction. There is a bladder diverticulum on the right. There is a left inguinal hernia containing fat. The appendix measures 9 mm in diameter without change. There are no pathologically enlarged lymph nodes. There is no free intraperitoneal fluid. There is no significant stenosis of celiac axis, superior mesenteric artery, the renal arteries, or inferior mesenteric artery. 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 There is a 3.7 cm fusiform aneurysm of left common iliac artery. There are changes of posterior fusion procedure at L4-L5. There is mild thoracic and lumbar spondylosis. IMPRESSION: 1. No active hemorrhage. 2. Gallbladder distention, which may be secondary to fasting. 3. Staghorn calculus in right kidney. 4. 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 Reviewed, dictated and finalized at location E. DESIGN INTERN IMPRESSION: 1. No active hemorrhage. 2. Gallbladder distention, which may be secondary to fasting. 3. Staghorn calculus in right kidney. 4. 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 Fusiform aneurysms of the comm on iliac arteries measuring up to 3.7 cm on the left.
--- NOTE | ~2025-02-11 | XR_ITS ---
EXAMINATION: XR chest 1V portable 02/12/2025 00:06 INDICATION: Fatigue PROCEDURE: AP portable chest COMPARISON: 12/15/2012 FINDINGS: The lungs are clear. The cardiomediastinal silhouette is within normal limits. There are no pleural effusions. There is no pneumothorax suspected. IMPRESSION: 1: NO ACUTE CARDIOPULMONARY DISEASE. Reviewed, dictated and finalized at location I. EY PICKER
--- OUTSIDE RECORDS SUMMARY | 2025-02-11 16:07 | XMS_ITS | Clinical Summary ---
Author Organization [facility] [address] Address [address] [place] [address] Care Team Providers Care Graduate Student Name Role Phone Varsha Lema MD Primary Care Provid er Allergies No known active allergies Medications aspirin (ASPIR-81) 81 mg tablet take 1 Tablet by oral route every day 0 0 03/16/2016 Active doxazosin (CARDURA) 8 mg tablet Take 0.5 tablets (4 mg total) by mouth nightly Active atorvastatin (LIPITOR) 80 mg tablet Take 1 tablet (80 mg total) by mouth daily Active cyanocobalamin (Vitamin B-12) 500 mcg tabletIndicatio ns:Prevention of Vitamin B12 Deficiency Take 500 mcg by mouth daily Active cholecalciferol (VITAMIN D-3) 4,000 unit tablet 40 mcg 01/28/2023 Active pyRIDostigmine (MESTINON) 60 mg tablet 0.5 tablets (30 mg total) 07/06/2022 Active Active Problems Problem Noted Date Diagnosed Date Coronary artery disease invo lving [place] coronary artery of [place] heart without angina pectoris 12/26/2018 History of coronary artery stent placement 12/26 Surgical History Surgery Date Site/Laterality Comments LUMBAR FUSION Medical History Medical History Date Comments Hypertension Hypertension Hyperlipidemia Kidney stone Stroke (HCC) Family History Medical History Relation Name Comments Other Brother 2 Heart Aneursym; Other Father Heart Aneursym; Cause of : Heart Aneursym Heart failure Mother Congestive Hea rt Failure; Cause of : Congestive Heart Failure Relation Name Status Comments Brother 1 Alive Brother 2 Father Mother (Age 92) Social History Tobacco Use Types Packs/Day Years Used Date Smoking Tobacco: Every Day Cigarettes Smokeless Tobacco: Never Tobacco Cessation:Ready to Q uit: Not Asked; Counseling Given: Not Answered Comments:Smoking History Packs/day: 1 Packs Alcohol Use Standard Drinks/Week Comments Yes 0 (1 standard drink = 0.6 oz pur e alcohol) AUDIT-C Answer Date Recorded Q1: How often do you have a drink containing alc ohol? Never 03/24/2021 Average Number of Drinks Not on file 022 Q3: How often do you have si x or more drinks on one occasion? 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 Gender Identity Not on file Sexual Orientation Not on file Last Filed Vital Signs Vital Sign Reading Time Taken Comments Blood Pressure 114/64 03/31/2023 10:26 AM MANAGER LAB Pulse 71 03/31/2023 10:26 AM MANAGER LAB Temperature 36 C (96.8 F) 03/24/2021 1:20 PM MANAGER LAB Respiratory Rate 18 03/24/2021 1:40 PM MANAGER LAB Oxygen Saturation 97% 03/31/2023 10:26 AM MANAGER LAB Inhaled Oxygen Concentration - - Weight 90.3 kg (199 lb) 03/31/2023 10:26 AM MANAGER LAB Height 180.3 cm (5' 11) 03/31/2023 10:26 AM MANAGER LAB Body Mass Index 27.75 03/31/2023 10:26 AM MANAGER LAB Plan of Treatment Health Maintenance Due Date Last Done Comments Depression Screening 1945 Hepatitis C Screening 1945 Hepatitis B Screening 1964 Zoster Vaccine (1 of 2) 1996 Well Visit 65+ 2011 DTaP/Tdap/Td Vaccine (2 - Td or Tdap) 12/12/2018 12/12/2008 Fall Risk Assessment 03/24/2022 03/24/2021 Covid-19 Vaccine (5 - 2024-2 6 season) 2024 08/14/2021, 01/10/2021, 04/24/2020, Additional history exists Influenza Vaccine (#1) 2024 , 01/08/2019, 12/08/2016, Additional history exists Pneumococcal vaccine 65+ Completed 11/28/2014, 05/12 Abdominal Aortic Aneurysm (A AA) Screen Completed 07/24/2021 Medical Devices Implanted Type Area Tool Lathe Operator Device Identifier Shelf Expiration Date Model / Serial / Lot Stent Stent N/A: Heart Description:[email or web address] Non-clinical testing has demonstrated that the XIENCE V stent, in single and in overlapped configurations up to 68 mm in length, is MR Conditional. It can be scanned safely under the following conditions: x Static magnetic field of 1.5 or 3 Lakshmi x Spatial gradient field of 2500 Gauss/cm or less x Maximum oaxss-oifw-ilxjiems specific absorption rate (TERRENCE) of 2.0 W/kg (normal operating mode) for each duration of a sequence The XIENCE V stent should not migrate in this MRI environment Insurance MEDICARE [facility] [employer] [place] [facility] MEDICARE [facility] SENIOR SUPPLEMENT [place] [facility] Advance Directives For more information, please contact: [phone] * Full Code (Latest Code Status on File) Date Activated Date Inactivated Comments 03/24/2021 12:19 PM 03/24/2021 7:19 PM Care Teams Graduate Student Relationship Specialty Start Date End Date Varsha Lema MD [address] [place] [address] PCP - General Family Practice 07/24/21
--- OUTSIDE RECORDS SUMMARY | 2025-02-11 16:07 | XMS_ITS | Encounter Summary ---
Author Organization [facility] Address [address] [facility] [address] [facility] [address] [place] [id number] Care Team Providers Care Components Engineer Name Role Phone No, Physician Primary Care Provider [phone] Unknown, Notinfile Primary Care Provider Unavail able Unknown, Notinfile Primary Care Provider Unavail able Varsha Lema MD Primary Care Provid er Encounter Details Date Type Department Care Team (Late st Contact Info) Description 03/22/2016 Orders Only [facility] ProviderKe MD [address] [place], [place] [id number] Social History Tobacco Use Types Packs/Day Years Used Date Smoking Tobacco: Every Day Comments:Smoking History Pac ks/day: 1 Packs Alcohol Use Standard Drinks/Week Comments Yes 0 (1 standard drink = 0.6 oz pur e alcohol) Sex and Gender Information Value Date Recorded Sex Assigned at Not on file Legal Sex 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 Historical Provider [facility] ANA LUISA BONILLA Final Result documented in this encounter Visit Diagnoses Not on filedocumented in this encounter Care Teams Components Engineer Relationship Specialty Start Date End Date No, Physician PCP - General 10/30/18 12/08/20 Unknown, Notinfile PCP - General 12/09/20 03/23/21 Unknown, Notinfile PCP - General 03/24/21 07/23/21 Varsha Lema MD [address] [place] [address] PCP - General Family Practice 07/24/21 documented as of this encounter
--- NOTE | 2025-02-11 17:58 | ED.GENADULT ---
HPI - General Adult General Chief complaint: GI Bleed <MARÍA Kelley - Last Filed: 02/11/25 18:08> Stated complaint: weak, dark stools <MARÍA Kelley - Last Filed: 02/11/25 18:08> Time Seen by Provider: 02/11/25 22:37 <MARÍA Kelley - Last Filed: 02/11/25 18:08> Focused HPI: 79 year old male presenting with concerns for dark stools and weakness. He states he has been constipated for about two weeks and was then able to have a bowel movement last Tuesday and then Tuesday reporting dark solid stools both times. He has not had a bowel movement since. He is also reporting increased fatigue the last few days. Denies abdominal pain, nausea/vomiting, urinary concerns, chest pain/shortness of breath GENERAL:No acute distress. HEAD: Normocephalic, atraumatic. CHEST: Clear to auscultation. ?No respiratory distress. HEART: Regular rate and rhythm.? NEURO: ?Alert and oriented x3. ABDOMEN: No TTP Patient screened in triage and initial orders placed.? ?Additional care and disposition to be based upon?diagnostic testing and treatment. <MARÍA Kelley - Last Filed: 02/11/25 18:08> Source: patient <Raz Arechiga DO - Last Filed: 02/12/25 03:27> Limitations: no limitations <Raz Arechiga DO - Last Filed: 02/12/25 03:27> History of Present Illness HPI narrative: Patient is a 79-year-old male presents to the emergency department complaining of dark stools, fatigue, fluid in his urine. Patient notes he was constipated couple weeks ago, started to finally go bladder weakness half ago and has since been noticing black appearing stools. Patient denies any use of NSAIDs aside from an aspirin, denies use of any blood thinners. Patient denies any history of colonoscopy. [facility], notes that he does to stool samples regularly. Denies any history of GI bleed. Patient denies any abdominal pain. Patient notes this morning when he went to urinate he noticed a small amount of a red appearance to the urine which seem to clear up throughout the day but still slightly present. Patient admits to generally feeling more fatigued lately. Patient denies any chest pain or difficulty breathing. Patient denies any headedness or loss of consciousness. <Raz Arechiga DO - Last Filed: 02/12/25 03:27> Related Data Home medications: Home Medications ?Medication ?Instructions ?Recorded ?Confirmed ?Last Taken ?Type aspirin 81 mg tablet 81 mg PO DAILY 07/09/21 07/09/21 07/08/21 21:00 History atorvastatin 80 mg PO HS 07/09/21 07/10/21 07/08/21 21:00 History doxazosin 8 mg tablet 8 mg PO HS 07/09/21 07/09/21 07/08/21 21:00 History capsaicin 0.025 % topical cream 1 applic topical QID 07/10/21 07/10/21 Unknown History cyanocobalamin (vitamin B-12) 1,000 mcg PO DAILY 07/10/21 07/10/21 Unknown History 1,000 mcg capsule nicotine 21 mg/24 hr daily 1 patch transdermal DAILY 07/10/21 07/10/21 Unknown History transdermal patch polyethylene glycol 3350 17 gram 17 g PO DAILY 07/10/21 07/10/21 Unknown History oral powder packet <MARÍA Kelley - Last Filed: 02/11/25 18:08> Allergies/adverse reactions: Allergies Allergy/AdvReac Type Severity Reaction Status Date / Time No Known Allergies Allergy Verified 02/11/25 16:40 <MARÍA Kelley - Last Filed: 02/11/25 18:08> Review of Systems Review of Systems: A 10 system review of systems was completed on the patient and is negative except for what is stated in the HPI. Nursing and ancillary documentation was reviewed. <Raz Arechiga DO - Last Filed: 02/12/25 03:27> [facility] Past Medical History Medical History: Medical History Coronary artery disease Hyperlipidemia Hypertension <MARÍA Kelley - Last Filed: 02/11/25 18:08> Surgical History Surgical History: Surgical History History of coronary angioplasty with insertion of stent <MARÍA Kelley - Last Filed: 02/11/25 18:08> Family History Family History: Family History Sibling Patient's sister is in good health Patient's brother is in good health Mother Family history of congestive heart failure, Onset Age: 92 Patient's mother is Father Patient's father is <MARÍA Kelley - Last Filed: 02/11/25 18:08> Social History Social History: Social History Smoking packs per day: 1 Smoking cigarettes per day: 20.0 Years smoked: 53 Smoking pack-years: 53.00 Smoking status: Current every day smoker Alcohol intake: current Substance use: never Substance use type: does not use Gender identity (if verbalized by the patient): Male Spiritual care concerns: No <MARÍA Kelley - Last Filed: 02/11/25 18:08> Exam Narrative: CONST: No acute distress. Well nourished. HENMT: Head is normocephalic and atraumatic. Tacky mucous membranes. No posterior oropharynx erythema. EYES: No scleral icterus. No conjunctival injection or pallor. PERRL. NECK: No meningeal signs. RESP: Able to speak in full sentences. Normal respiratory effort. CTAB. CARDIO: Regular rate. Regular rhythm. 2+ DP and radial pulses bilaterally. GI: Nondistended. No tenderness to palpation. Soft. : No CVA tenderness to palpation. No external hemorrhoids or palpable internal hemorrhoids. Normal anal tone. Stool is brown, negative guaiac test. SKIN: No rashes or lesions noted on exposed skin. NEURO: Oriented x3. Moves all extremities. EXTREM/MSK/BACK: No pedal edema. PSYCH: Normal affect. <Raz Arechiga DO - Last Filed: 02/12/25 03:27> Course Vital Signs Vital signs: Vital Signs Temperature 97.8 F 02/11/25 16:35 Pulse Rate 68 02/11/25 16:35 Respiratory Rate 17 02/11/25 16:35 Blood Pressure 106/57 L 02/11/25 16:35 Pulse Oximetry 100 02/11/25 16:35 Oxygen Delivery Room Air 02/11/25 16:35 Temperature 97.9 F 02/11/25 20:12 Pulse Rate 56 L 02/12/25 00:15 Respiratory Rate 14 02/12/25 00:15 Blood Pressure 122/77 02/12/25 00:03 Pulse Oximetry 99 02/11/25 23:21 Oxygen Delivery Room Air 02/11/25 16:35 <MARÍA Kelley - Last Filed: 02/11/25 18:08> Vital Signs Temperature 97.8 F 02/11/25 16:35 Pulse Rate 68 02/11/25 16:35 Respiratory Rate 17 02/11/25 16:35 Blood Pressure 106/57 L 02/11/25 16:35 Pulse Oximetry 100 02/11/25 16:35 Oxygen Delivery Room Air 02/11/25 16:35 Temperature 97.9 F 02/11/25 20:12 Pulse Rate 56 L 02/12/25 00:15 Respiratory Rate 14 02/12/25 00:15 Blood Pressure 122/77 02/12/25 00:03 Pulse Oximetry 99 02/11/25 23:21 Oxygen Delivery Room Air 02/11/25 16:35 <Raz Arechiga DO - Last Filed: 02/12/25 03:27> [facility] MDM Narrative Medical decision making narrative: Patient presents with the above complaint. Initial vitals are remarkable for a blood pressure 106/57. Physical examination as noted above. Plan discussed: laboratory analysis, EKG, imaging. Patient ordered IV fluids, Protonix. CT of the abdomen pelvis can be protocol preliminary report from Radiology reveals no extravasation of contrast noted in the bowel to suggest an area of active GI bleeding at the time of the skin. The colon is distended containing air and stool. Overall bowel gas pattern and may represent a mild ileus. There is a small hiatal hernia. Incidental findings reveal that the gallbladder is distended. There is dilation of the pancreatic duct. There are calcifications in the pancreatic head which may be related to chronic pancreatitis. There is inhomogeneity in the pancreatic head. An underlying lesion cannot be excluded. There is a large staghorn calculus within the right kidney. No evidence of hydronephrosis. There are possible bilateral renal cyst. There is a 4.1 cm abdominal aortic aneurysm. There bilateral iliac artery aneurysms. There is thickening of the urinary bladder wall. There is a small bubble of air noted within the urinary bladder. There is 8 mm calculus within the urinary bladder. There may be diverticular projecting off the right side of the urinary bladder. The prostate gland is enlarged containing calcifications. On review of prior imaging the abdominal aortic aneurysm and bilateral iliac artery aneurysms have been present in the past in addition to the pancreatic findings. I spoke with Urology on-call Dr. Stone who notes no need for any hospitalization or IV antibiotics, would recommend oral antibiotics, follow-up with Dr. Singh. Strict return precautions. I spoke with the hospitalist on-call her accepted the patient for admission. Patient's hemoglobin have been trending down despite only given 125 cc an hour. I spoke with Urology given who agrees to see the patient on consultation. <Raz Arechiga DO - Last Filed: 02/12/25 03:27> Differential Diagnosis Differential Diagnosis: GI bleed, upper GI bleed, lower GI bleed, metabolic derangement, electrolyte derangement, UTI, dehydration, ACS, pneumonia. <Raz Arechiga DO - Last Filed: 02/12/25 03:27> Lab Data MDM Lab Attestation statement: I personally reviewed the patient's lab results. <Raz Arechiga DO - Last Filed: 02/12/25 03:27> Lab results narrative: CBC reveals a hemoglobin of 14.0. Coags are grossly within normal limits. Comprehensive metabolic panel reveals a glucose 129. Lactic acid is 1.6. <Raz Arechiga DO - Last Filed: 02/12/25 03:27> Result diagrams: 02/11/25 23:23 02/11/25 21:53 <Jane Bey PA - Last Filed: 02/11/25 18:08> Labs: Lab Results 02/11/25 02/11/25 02/11/25 Range/Units 21:53 21:55 23:09 WBC 6.0 (4.5-10.0) K/mm3 RBC 4.54 L (4.6-6.20) M/mm3 Hgb 14.0 (14.0-18.0) g/dL Hct 41.5 L (42.0-52.0) % MCV 91.4 (80-100) fl MCH 30.8 (26-34) pg MCHC 33.7 (32-36) g/dl RDW 13.5 (11.5-14.5) % Plt Count 195 (150-375) k/mm3 MPV 11.1 H (7.4-10.4) fl Immature Gran % (Auto) 0.2 (0-0.5) % Neut % (Auto) 57.4 (45.5-73.1) % Lymph % (Auto) 28.5 (18.3-44.2) % [place] % (Auto) 9.3 H (2.6-8.5) % Eos % (Auto) 3.8 (0-4.4) % Baso % (Auto) 0.8 (0.2-1.2) % Lymph # (Auto) 1.71 (0.9-3.2) K/mm3 [place] # (Auto) 0.6 (0.1-0.6) K/mm3 Eos # (Auto) 0.2 (0-0.3) K/mm3 Baso # (Auto) 0.1 (0.0-0.1) K/mm3 Abs Immat Gran (auto) 0.01 (0.00-0.031) K/mm3 Absolute Neuts (auto) 3.4 (1.3-6.7) K/mm3 Absolute Nucleated RBC 0.000 (0.0-0.012) K/mm3 Nucleated RBC % 0.0 (0.0-0.2) % PT 14.3 (11.1-14.7) Seconds INR 1.1 APTT 20.7 L (22.3-36.8) Seconds Sodium 136 L (137-145) mmol/L Potassium 3.6 (3.4-5.0) mmol/L Chloride 106 (98-107) mmol/L Carbon Dioxide 26 (22-30) mmol/L Anion Gap 4 (4-12) mmol/L BUN 20 (9-20) mg/dL Creatinine 0.89 (0.7-1.3) mg/dL Estim Creat Clear Calc 64 ml/min Estimated GFR > 60 (59 - ) Glucose 129 H (65-110) mg/dL Lactic Acid 1.6 (0.7-2.0) mmol/L Calcium 9.2 (8.4-10.2) mg/dL Magnesium Cancelled Total Bilirubin 0.8 (0.2-1.3) mg/dL AST 28 (17-59) U/L ALT 18 (6-50) U/L Alkaline Phosphatase 75 (38-126) U/L Troponin I (0.000-0.034) ng/mL Total Protein 7.3 (6.3-8.2) g/dL Albumin 3.9 (3.5-5.1) g/dL Lipase Cancelled Urine Color [place] (Yellow) Urine Appearance Turbid H (Clear) Urine pH 8.5 (5.0-9.0) Ur Specific [place] 1.016 (1.001-1.035) Urine Protein 2+ H (Negative) mg/dL Urine Glucose (UA) Negative (Negative) mg/dL Urine Ketones Negative (Negative) mg/dL Ur Blood (Man) 3+ H (Negative) Urine Nitrate Positive H (Negative) Urine Bilirubin Negative (Negative) Urine Urobilinogen 1.0 (<2.0) mg/dL Add Ur Microanalysis Reviewed Leukocyte Esterase Rfl 3+ H (Negative) BOB/UL Urine RBC >100 H (0-2) /hpf Urine WBC >100 H (0-3) /hpf Ur Squamous Epith Cells None seen (Few) /hpf Urine Bacteria 4+ H /hpf Urine Casts >20 Stl Occult Blood (IFOB) Blood Type O Positive Antibody Screen Negative 02/11/25 02/11/25 Range/Units 23:23 23:29 WBC (4.5-10.0) K/mm3 RBC (4.6-6.20) M/mm3 Hgb 13.2 L (14.0-18.0) g/dL Hct 39.8 L (42.0-52.0) % MCV (80-100) fl MCH (26-34) pg MCHC (32-36) g/dl RDW (11.5-14.5) % Plt Count (150-375) k/mm3 MPV (7.4-10.4) fl Immature Gran % (Auto) (0-0.5) % Neut % (Auto) (45.5-73.1) % Lymph % (Auto) (18.3-44.2) % [place] % (Auto) (2.6-8.5) % Eos % (Auto) (0-4.4) % Baso % (Auto) (0.2-1.2) % Lymph # (Auto) (0.9-3.2) K/mm3 [place] # (Auto) (0.1-0.6) K/mm3 Eos # (Auto) (0-0.3) K/mm3 Baso # (Auto) (0.0-0.1) K/mm3 Abs Immat Gran (auto) (0.00-0.031) K/mm3 Absolute Neuts (auto) (1.3-6.7) K/mm3 Absolute Nucleated RBC (0.0-0.012) K/mm3 Nucleated RBC % (0.0-0.2) % PT (11.1-14.7) Seconds INR APTT (22.3-36.8) Seconds Sodium (137-145) mmol/L Potassium (3.4-5.0) mmol/L Chloride (98-107) mmol/L Carbon Dioxide (22-30) mmol/L Anion Gap (4-12) mmol/L BUN (9-20) mg/dL Creatinine (0.7-1.3) mg/dL Estim Creat Clear Calc ml/min Estimated GFR (59 - ) Glucose (65-110) mg/dL Lactic Acid (0.7-2.0) mmol/L Calcium (8.4-10.2) mg/dL Magnesium 2.3 Total Bilirubin (0.2-1.3) mg/dL AST (17-59) U/L ALT (6-50) U/L Alkaline Phosphatase (38-126) U/L Troponin I 0.016 (0.000-0.034) ng/mL Total Protein (6.3-8.2) g/dL Albumin (3.5-5.1) g/dL Lipase 279 Urine Color (Yellow) Urine Appearance (Clear) Urine pH (5.0-9.0) Ur Specific [place] (1.001-1.035) Urine Protein (Negative) mg/dL Urine Glucose (UA) (Negative) mg/dL Urine Ketones (Negative) mg/dL Ur Blood (Man) (Negative) Urine Nitrate (Negative) Urine Bilirubin (Negative) Urine Urobilinogen (<2.0) mg/dL Add Ur Microanalysis Leukocyte Esterase Rfl (Negative) BOB/UL Urine RBC (0-2) /hpf Urine WBC (0-3) /hpf Ur Squamous Epith Cells (Few) /hpf Urine Bacteria /hpf Urine Casts Stl Occult Blood (IFOB) Pending Blood Type Antibody Screen <MARÍA Kelley - Last Filed: 02/11/25 18:08> Lab Results 02/11/25 02/11/25 02/11/25 Range/Units 21:53 21:55 23:09 WBC 6.0 (4.5-10.0) K/mm3 RBC 4.54 L (4.6-6.20) M/mm3 Hgb 14.0 (14.0-18.0) g/dL Hct 41.5 L (42.0-52.0) % MCV 91.4 (80-100) fl MCH 30.8 (26-34) pg MCHC 33.7 (32-36) g/dl RDW 13.5 (11.5-14.5) % Plt Count 195 (150-375) k/mm3 MPV 11.1 H (7.4-10.4) fl Immature Gran % (Auto) 0.2 (0-0.5) % Neut % (Auto) 57.4 (45.5-73.1) % Lymph % (Auto) 28.5 (18.3-44.2) % [place] % (Auto) 9.3 H (2.6-8.5) % Eos % (Auto) 3.8 (0-4.4) % Baso % (Auto) 0.8 (0.2-1.2) % Lymph # (Auto) 1.71 (0.9-3.2) K/mm3 [place] # (Auto) 0.6 (0.1-0.6) K/mm3 Eos # (Auto) 0.2 (0-0.3) K/mm3 Baso # (Auto) 0.1 (0.0-0.1) K/mm3 Abs Immat Gran (auto) 0.01 (0.00-0.031) K/mm3 Absolute Neuts (auto) 3.4 (1.3-6.7) K/mm3 Absolute Nucleated RBC 0.000 (0.0-0.012) K/mm3 Nucleated RBC % 0.0 (0.0-0.2) % PT 14.3 (11.1-14.7) Seconds INR 1.1 APTT 20.7 L (22.3-36.8) Seconds Sodium 136 L (137-145) mmol/L Potassium 3.6 (3.4-5.0) mmol/L Chloride 106 (98-107) mmol/L Carbon Dioxide 26 (22-30) mmol/L Anion Gap 4 (4-12) mmol/L BUN 20 (9-20) mg/dL Creatinine 0.89 (0.7-1.3) mg/dL Estim Creat Clear Calc 64 ml/min Estimated GFR > 60 (59 - ) Glucose 129 H (65-110) mg/dL Lactic Acid 1.6 (0.7-2.0) mmol/L Calcium 9.2 (8.4-10.2) mg/dL Magnesium Cancelled Total Bilirubin 0.8 (0.2-1.3) mg/dL AST 28 (17-59) U/L ALT 18 (6-50) U/L Alkaline Phosphatase 75 (38-126) U/L Troponin I (0.000-0.034) ng/mL Total Protein 7.3 (6.3-8.2) g/dL Albumin 3.9 (3.5-5.1) g/dL Lipase Cancelled Urine Color [place] (Yellow) Urine Appearance Turbid H (Clear) Urine pH 8.5 (5.0-9.0) Ur Specific [place] 1.016 (1.001-1.035) Urine Protein 2+ H (Negative) mg/dL Urine Glucose (UA) Negative (Negative) mg/dL Urine Ketones Negative (Negative) mg/dL Ur Blood (Man) 3+ H (Negative) Urine Nitrate Positive H (Negative) Urine Bilirubin Negative (Negative) Urine Urobilinogen 1.0 (<2.0) mg/dL Add Ur Microanalysis Reviewed Leukocyte Esterase Rfl 3+ H (Negative) BOB/UL Urine RBC >100 H (0-2) /hpf Urine WBC >100 H (0-3) /hpf Ur Squamous Epith Cells None seen (Few) /hpf Urine Bacteria 4+ H /hpf Urine Casts >20 Stl Occult Blood (IFOB) Blood Type O Positive Antibody Screen Negative 02/11/25 02/11/25 Range/Units 23:23 23:29 WBC (4.5-10.0) K/mm3 RBC (4.6-6.20) M/mm3 Hgb 13.2 L (14.0-18.0) g/dL Hct 39.8 L (42.0-52.0) % MCV (80-100) fl MCH (26-34) pg MCHC (32-36) g/dl RDW (11.5-14.5) % Plt Count (150-375) k/mm3 MPV (7.4-10.4) fl Immature Gran % (Auto) (0-0.5) % Neut % (Auto) (45.5-73.1) % Lymph % (Auto) (18.3-44.2) % [place] % (Auto) (2.6-8.5) % Eos % (Auto) (0-4.4) % Baso % (Auto) (0.2-1.2) % Lymph # (Auto) (0.9-3.2) K/mm3 [place] # (Auto) (0.1-0.6) K/mm3 Eos # (Auto) (0-0.3) K/mm3 Baso # (Auto) (0.0-0.1) K/mm3 Abs Immat Gran (auto) (0.00-0.031) K/mm3 Absolute Neuts (auto) (1.3-6.7) K/mm3 Absolute Nucleated RBC (0.0-0.012) K/mm3 Nucleated RBC % (0.0-0.2) % PT (11.1-14.7) Seconds INR APTT (22.3-36.8) Seconds Sodium (137-145) mmol/L Potassium (3.4-5.0) mmol/L Chloride (98-107) mmol/L Carbon Dioxide (22-30) mmol/L Anion Gap (4-12) mmol/L BUN (9-20) mg/dL Creatinine (0.7-1.3) mg/dL Estim Creat Clear Calc ml/min Estimated GFR (59 - ) Glucose (65-110) mg/dL Lactic Acid (0.7-2.0) mmol/L Calcium (8.4-10.2) mg/dL Magnesium 2.3 Total Bilirubin (0.2-1.3) mg/dL AST (17-59) U/L ALT (6-50) U/L Alkaline Phosphatase (38-126) U/L Troponin I 0.016 (0.000-0.034) ng/mL Total Protein (6.3-8.2) g/dL Albumin (3.5-5.1) g/dL Lipase 279 Urine Color (Yellow) Urine Appearance (Clear) Urine pH (5.0-9.0) Ur Specific [place] (1.001-1.035) Urine Protein (Negative) mg/dL Urine Glucose (UA) (Negative) mg/dL Urine Ketones (Negative) mg/dL Ur Blood (Man) (Negative) Urine Nitrate (Negative) Urine Bilirubin (Negative) Urine Urobilinogen (<2.0) mg/dL Add Ur Microanalysis Leukocyte Esterase Rfl (Negative) BOB/UL Urine RBC (0-2) /hpf Urine WBC (0-3) /hpf Ur Squamous Epith Cells (Few) /hpf Urine Bacteria /hpf Urine Casts Stl Occult Blood (IFOB) Pending Blood Type Antibody Screen <Raz Arechiga DO - Last Filed: 02/12/25 03:27> Discharge Plan Discharge Clinical Impression: Acute UTI, Staghorn calculus, Bladder stone, Aortic aneurysm, Aneurysm artery, iliac, Anemia <MARÍA Kelley Last Filed: 02/11/25 18:08> Patient Disposition: Still a Patient <MARÍA Kelley Last Filed: 02/11/25 18:08> Condition: Stable <MARÍA Kelley Last Filed: 02/11/25 18:08> Patient Language: [place] <MARÍA Kelley Last Filed: 02/11/25 18:08> Prescriptions: No Action doxazosin 8 mg Tablet 8 mg PO HS aspirin 81 mg Tablet 81 mg PO DAILY atorvastatin 80 mg PO HS polyethylene glycol 3350 17 gram Powder In Packet 17 g PO DAILY nicotine 21 mg/24 hr Patch 24 Hour 1 patch TRANSDERMAL DAILY capsaicin 0.025 % Cream 1 applic TOPICAL QID cyanocobalamin (vitamin B-12) 1,000 mcg Capsule 1,000 mcg PO DAILY cephalexin 500 mg capsule 500 mg PO Q12H 5 Days Qty: 10 0RF <MARÍA Kelley - Last Filed: 02/11/25 18:08> Follow-up/Referrals: [facility] [Primary Care Provider, Medical] <MARÍA Kelley - Last Filed: 02/11/25 18:08> Time of Disposition: 03:25 <MARÍA Kelley - Last Filed: 02/11/25 18:08> 03:25 <Raz Arechiga DO - Last Filed: 02/12/25 03:27>
[2025-02-11 22:03] LABS: Hematocrit 41.5 % (42.0-52.0); Hemoglobin 14.0 g/dL (14.0-18.0); Immature Granulocyte Percent A 0.2 % (0-0.5); Lymphocytes Absolute Auto 1.71 K/mm3 (0.9-3.2); Mean Corpuscular HGB Conc 33.7 g/dl (32-36); Mean Corpuscular Hemoglobin 30.8 pg (26-34); Mean Corpuscular Volume 91.4 fl (80-100); Nucleated Red Blood Cells Absolute Auto 0.000 K/mm3 (0.0-0.012); Nucleated Red Blood Cells Perc 0.0 % (0.0-0.2); Platelet Count Result 195 k/mm3 (150-375); Red Blood Count 4.54 M/mm3 (4.6-6.20); White Blood Count 6.0 K/mm3 (4.5-10.0)
[2025-02-11 22:24] LABS: Alanine Aminotransferase 18 U/L (6-50); Albumin Level 3.9 g/dL (3.5-5.1); Alkaline Phosphatase 75 U/L (38-126); Anion Gap 4 mmol/L (4-12); Aspartate Amino Transferase 28 U/L (17-59); Bilirubin,Total 0.8 mg/dL (0.2-1.3); Blood Urea Nitrogen 20 mg/dL (9-20); Calcium 9.2 mg/dL (8.4-10.2); Carbon Dioxide 26 mmol/L (22-30); Chloride 106 mmol/L (98-107); Estimated CRCL calculation 64 ml/min; Estimated Glomerular Filt Rate > 60; Glucose 129 mg/dL (65-110); Potassium 3.6 mmol/L (3.4-5.0); Sodium 136 mmol/L (137-145); Total Protein 7.3 g/dL (6.3-8.2)
[2025-02-11 22:29] LABS: INR 1.1; Prothrombin Time 14.3 Seconds (11.1-14.7)
[2025-02-11 22:30] LABS: Partial Thromboplastin Time 20.7 Seconds (22.3-36.8)
--- OUTSIDE RECORDS SUMMARY | 2025-02-11 22:53 | XMS_ITS | Clinical Summary ---
Author Organization [facility] [address] Address [address] [place] [address] Care Team Providers Care Curriculum And Assessment Director Name Role Phone Varsha Lema MD Primary [...] Diagnosed Date Coronary artery disease invo lving [place] coronary artery of [place] heart without angina pectoris 12/26/2018 History of [...] on file Legal Sex Male 12:06 PM WHAT JOB TITLES MEAN Gender Identity Not on file Sexual Orientation Not on file Last Filed Vital Signs Vital Sign Reading Time Taken Comments Blood Pressure 114/64 03/31/2023 10:26 AM WHAT JOB TITLES MEAN Pulse 71 03/31/2023 10:26 AM WHAT JOB TITLES MEAN Temperature 36 C (96.8 F) 03/24/2021 1:20 PM WHAT JOB TITLES MEAN Respiratory Rate 18 03/24/2021 1:40 PM WHAT JOB TITLES MEAN Oxygen Saturation 97% 03/31/2023 10:26 AM WHAT JOB TITLES MEAN Inhaled Oxygen Concentration - - Weight 90.3 kg (199 lb) 03/31/2023 10:26 AM WHAT JOB TITLES MEAN Height 180.3 cm (5' 11) 03/31/2023 10:26 AM WHAT JOB TITLES MEAN Body Mass Index 27.75 03/31/2023 10:26 AM WHAT JOB TITLES MEAN Plan of Treatment Health Maintenance Due Date [...] Completed 07/24/2021 Medical Devices Implanted Type Area Speeder Operator Device Identifier Shelf Expiration Date Model / Serial / Lot Stent Stent N/A: Heart Description:[email or web address] Non-clinical testing has demonstrated that the XIENCE V stent, in single and in overlapped configurations up to 68 mm in length, is MR Conditional. It can be scanned safely under the following conditions: x Static magnetic field of 1.5 or 3 Lakshmi x Spatial gradient field of 2500 Gauss/cm or less x Maximum gbbpb-hayw-ifzirrod specific absorption rate (TERRENCE) of 2.0 W/kg (normal operating mode) for each duration of a sequence The XIENCE V stent should not migrate in this MRI environment Insurance MEDICARE [facility] T [facility] MEDICARE [facility] Advance Directives For more information, please contact: [phone] * Full Code (Latest Code Status on File) Date Activated Date Inactivated Comments 03/24/2021 12:19 PM 03/24/2021 7:19 PM Care Teams Curriculum And Assessment Director Relationship Specialty Start Date End Date Varsha Lema MD [address] [place] [address] PCP - General Family Practice 07/24/21
--- OUTSIDE RECORDS SUMMARY | 2025-02-11 22:53 | XMS_ITS | Encounter Summary ---
Author Organization [facility] Address [address] [place] [id number] Care Team Providers Care Java User Interface Developer Name Role Phone No, Physician Primary Care Provider [phone] Unknown, Notinfile Primary Care Provider Unavail able Unknown, Notinfile Primary Care Provider Unavail able Varsha Lema MD Primary Care Provid er Encounter Details Date Type Department Care Team (Late st Contact Info) Description 03/22/2016 Orders Only [facility] ProviderKe MD [address] [place], [place] [id number] Social History Tobacco Use Types Packs/Day Years Used Date Smoking Tobacco: Every Day Comments:Smoking History Pac ks/day: 1 Packs Alcohol Use Standard Drinks/Week Comments Yes 0 (1 standard drink = 0.6 oz pur e alcohol) Sex and Gender Information Value Date Recorded Sex Assigned at Not on file 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
[2025-02-11 23:54] LABS: Lipase 279 U/L (23-300); Magnesium 2.3 mg/dL (1.6-2.3)
[2025-02-11] MEDS: SODIUM CHLORIDE 0.9% IV 1,000 ML 125 ML IV CONT (23:57)
[2025-02-11] MEDS: PANTOPRAZOLE SODIUM IV 40 MG VIAL 80 MG IV PUSH (23:57)
[2025-02-11 23:58] LABS: Hematocrit 39.8 % (42.0-52.0); Hemoglobin 13.2 g/dL (14.0-18.0)
[2025-02-12] VITALS: PULSE 56; RESP 17
--- NOTE | 2025-02-12 | ECG_ITS ---
Test Date: 2025-02-12 00:11:21 Measurements Intervals [place] Rate: 58 P: 45 OR: 203 QRS: 18 QRSD: 99 T: 67 QT: 444 QTc: 436 Interpretive Statements SINUS BRADYCARDIA WITH OCCASIONAL SUPRAVENTRICULAR PREMATURE COMPLEXES BORDERLINE AV CONDUCTION DELAY CANNOT R/O SEPTAL INFARCT, AGE INDETERMINATE ABNORMAL ECG No previous ECG available for comparison Electronically Signed On 02-12-2025 07:56:15 [employer] by Jed Tariq D.O.
[2025-02-12 00:03] VITALS: BP 122/77; PULSE 58; RESP 13
[2025-02-12 00:06] LABS: Troponin I 0.016 ng/mL (0.000-0.034)
[2025-02-12 00:15] VITALS: PULSE 56; RESP 14
[2025-02-12 01:27] LABS: Add Urine Microscopic? YES; Appearance Urine Turbid (Clear); Glucose Urine UA Negative (Negative); Leukocyte Esterase Ur 3+ LEU/UL (Negative); Need Manual Microscopic Reviewed; Nitrate Urine Positive (Negative); Non Pathogenic Casts >20; Specific Grav Ur 1.016 (1.001-1.035)
[2025-02-12] MEDS: cefTRIAXone 1 GM in SODIUM CHLORIDE 0.9% IV 50 ML 100 ML IVPB (02:03)
[2025-02-12 02:40] LABS: Hematocrit 37.7 % (42.0-52.0); Hemoglobin 12.6 g/dL (14.0-18.0)
--- NOTE | 2025-02-12 03:55 | WPCEDHO ---
ED Hand Off Checklist All vitals saved: y IV Site documented: y All med administrations documented: y Triage Note Triage Note Pt to ED from home via EMS co 02/11/25 23:20 weakness and tarry stools. Pt states he has been feeling weak for a while but that it's worse today. Pt states he has had 2 episodes of black tarry stool since 02/07 pt also co hematuria. Allergies No Known Allergies Allergy (Verified 02/11/25 16:40) Family History (Last Reviewed 07/09/21 @ 22:43 by Sylvia Bhakta RN) Sibling Patient's sister is in good health Patient's brother is in good health Mother Family history of congestive heart failure Patient's mother is Father Patient's father is Active Medications including assessments/comments Sodium Chloride (Normal Saline Iv) 1,000 mls @ 125 mls/hr IV CONT .Q8H LEVI Last Admin: 02/11/25 23:57 Dose: 125 mls/hr Documented By: NITIN Infusion/Titration Document 02/11/25 23:57 NITIN (Rec: 02/11/25 23:57 NITIN [id number]) Intake IV Site Peripheral Access Left Antecubital Container Volume 1,000 Waste Amount 0 Dosing Infusion Rate 125 Cumulative Dose Not Applicable Increase/Decrease Started Elapsed Time Elapsed Time ( 0m minutes) Administered/Completed Medications Discontinued Medications Ceftriaxone Sodium 1 gm/ (Sodium Chloride) 50 mls @ 100 mls/hr IVPB ONCE STA Stop: 02/12/25 02:07 Last Infusion: 02/12/25 02:35 Dose: Infused Documented By: Admin: 02/12/25 02:03 Dose: 100 mls/hr Documented By: NITIN Pantoprazole Sodium (Pantoprazole Sodium Iv 40 Mg Vial) 80 mg IV PUSH ONCE STA Stop: 02/11/25 22:39 Last Admin: 02/11/25 23:57 Dose: 80 mg Documented By: NITIN Interventions/Assessments IV / Saline Lock, Insert Start: 02/11/25 16:07 Freq: Status: Active Protocol: Document 02/11/25 23:20 NITIN (Rec: 02/11/25 23:20 NITIN [id number]) IV Assessment Peripheral Access Left Antecubital IV Catheter Access Initiated IV Insertion Date 02/11/25 IV Insertion Time 23:20 Catheter Gauge 20 IV Insertion 1 Attempts Ultrasound Used for No Placement IV Site Assessment WNL IV Care and WNL Maintenance Last Vital Signs Temperature 97.9 F 02/11/25 20:12 Pulse Rate 56 L 02/12/25 00:15 Respiratory Rate 14 02/12/25 00:15 Pulse Oximetry 99 02/11/25 23:21 Blood Pressure 122/77 02/12/25 00:03 Blood Pressure Mean 90 02/12/25 00:03 Blood Pressure Position Sitting 02/11/25 23:21 Oxygen Delivery Room Air 02/11/25 16:35 Weight 85.9 kg 02/11/25 23:20 Last Result - Abnormals Only RBC 4.54 M/mm3 (4.6-6.20) L 02/11/25 21:53 Hgb 12.6 g/dL (14.0-18.0) L 02/12/25 02:33 Hct 37.7 % (42.0-52.0) L 02/12/25 02:33 MPV 11.1 fl (7.4-10.4) H 02/11/25 21:53 Sharp % (Auto) 9.3 % (2.6-8.5) H 02/11/25 21:53 APTT 20.7 Seconds (22.3-36.8) L 02/11/25 21:53 Sodium 136 mmol/L (137-145) L 02/11/25 21:53 Glucose 129 mg/dL (65-110) H 02/11/25 21:53 Urine Appearance Turbid (Clear) H 02/11/25 23:09 Urine Protein 2+ mg/dL (Negative) H 02/11/25 23:09 Ur Blood (Man) 3+ (Negative) H 02/11/25 23:09 Urine Nitrate Positive (Negative) H 02/11/25 23:09 Leukocyte Esterase Rfl 3+ BOB/UL (Negative) H 02/11/25 23:09 Urine RBC >100 /hpf (0-2) H 02/11/25 23:09 Urine WBC >100 /hpf (0-3) H 02/11/25 23:09 Urine Bacteria 4+ /hpf H 02/11/25 23:09 Most Recent Suicide Severity Rating Suicide Severity Rating NO RISK INDICATED 02/11/25 23:20
--- NOTE | 2025-02-12 04:43 | ADMGEN ---
This patient, Ronnie Bruner, was admitted to Medical Room 250-01. Patient/family oriented to hospital policies and general routines including ID bracelet, bed and alarms, visiting hours, pain management, procedures, bathroom and other care routines, personal items, smoking policy, room service/diet, and visiting hours. Information on how to activate the Rapid Response Team has been discussed. Patient/Family are encouraged to report perceived risks to care and to ask questions if they do not understand what they are told or what they should do.
[2025-02-12] MEDS: SODIUM CHLORIDE 0.9% IV 1,000 ML 125 ML IV CONT (04:46)
[2025-02-12 05:06] VITALS: BP 148/74; PULSE 53; RESP 18; TEMP 36.2; O2SAT 99
[2025-02-12 06:49] LABS: Hematocrit 37.2 % (42.0-52.0); Hemoglobin 12.3 g/dL (14.0-18.0); Mean Corpuscular HGB Conc 33.1 g/dl (32-36); Mean Corpuscular Hemoglobin 31.0 pg (26-34); Mean Corpuscular Volume 93.7 fl (80-100); Platelet Count Result 156 k/mm3 (150-375); Red Blood Count 3.97 M/mm3 (4.6-6.20); White Blood Count 5.2 K/mm3 (4.5-10.0)
[2025-02-12 06:59] LABS: Anion Gap 2 mmol/L (4-12); Blood Urea Nitrogen 17 mg/dL (9-20); Calcium 8.4 mg/dL (8.4-10.2); Carbon Dioxide 25 mmol/L (22-30); Chloride 109 mmol/L (98-107); Estimated CRCL calculation 66 ml/min; Estimated Glomerular Filt Rate > 60; Glucose 95 mg/dL (65-110); Potassium 3.4 mmol/L (3.4-5.0); Sodium 136 mmol/L (137-145)
--- NOTE | 2025-02-12 08:55 | PCRCNOTE ---
Attempted to give patient smoking cessation package and refused. Not interested. Told me to throw away information.
[2025-02-12] MEDS: FINASTERIDE 5 MG TABLET PO (08:56)
[2025-02-12] MEDS: FERROUS SULFATE 325 MG TABLET PO (08:56)
[2025-02-12] MEDS: pyRIDostigmine bromide 30 MG TABLET PO (08:57)
--- NOTE | 2025-02-12 09:04 | PM.IMHP2 ---
H&P: HPI History of Present Illness Date/Time: 02/12/25 09:04 Chief Complaint: GI Bleed Narrative: 79 year old male presenting with concerns for dark stools and weakness. He states he has been constipated for about two weeks. Patient was able to have a bowel movement last Tuesday by Tuesday he was reporting dark solid stools both times. He has not had a bowel movement since. He is also reporting increased fatigue the last few days. Denies abdominal pain, nausea/vomiting, urinary concerns, chest pain/shortness of breath. 02/12- Patient is focused on discharge back home to take care of his and daughter. Patient states he has had these same symptoms of dark stools 3 years ago. He was given mirlax and states he does not take it regularly but when he does he does not have GI symptoms. Patient reports last bowel movement was on 02/07. He states he has been going to the [place] for most of his care and would like to return back there to finish his treatment. He reports he will follow up with his GI specialist Dr. Lema, urologist and PCP. Review of Systems Review of Systems: All systems reviewed & are unremarkable except as noted in HPI and below Constitutional: Constitutional: Denies body ache(s), Denies chills, Denies lethargy and Reports weakness Cardiovascular: Cardiovascular: Denies no additional cardiovascular complaints and Denies chest pain Respiratory: Respiratory: Denies chest congestion, Denies cough, Denies hemoptysis and Denies dyspnea Gastrointestinal: Gastrointestinal: Reports as per HPI Genitourinary: Genitourinary: Reports as per HPI Musculoskeletal: Musculoskeletal: Denies no additional musculoskeletal complaints Neurologic: Denies Abnormal speech present, Denies abnormal gait, Denies confusion and Denies headache(s) Psychiatric: Psychiatric: Denies anxiety, Denies confusion, Denies depression and Denies suicidal ideation [facility] Past Medical History Medical History Coronary artery disease Hyperlipidemia Hypertension Surgical History Surgical History History of coronary angioplasty with insertion of stent Family History Family History Sibling Patient's sister is in good health Patient's brother is in good health Mother Family history of congestive heart failure, Onset Age: 92 Patient's mother is Father Patient's father is Social History Social History Smoking packs per day: 1 Smoking cigarettes per day: 20.0 Years smoked: 53 Smoking pack-years: 53.00 Smoking status: Current every day smoker Tobacco type: cigarettes Alcohol intake: former Substance use: never Substance use type: does not use Lack of Transportation: No Lack of Food: Never True Current Housing: I Have Housing Concerned About Future Housing: No Difficulty Paying Gas/Electric Bills: No Difficulty Paying for Meds: No Currently Unemployed: No Education: High School Diploma/GED Difficulty w/ Childcare or Family Care: YES Gender identity (if verbalized by the patient): Male Spiritual care concerns: No Meds Home Medications and Allergies Home Medications ?Medication ?Instructions ?Recorded ?Confirmed ?Type aspirin 81 mg tablet 81 mg PO DAILY 07/09/21 02/12/25 History atorvastatin 40 mg PO HS 07/09/21 02/12/25 History capsaicin 0.025 % topical cream 1 applic topical QID 07/10/21 02/12/25 History cholecalciferol (vitamin D3) 10 10 mcg PO DAILY 02/12/25 02/12/25 History mcg (400 unit) capsule ferrous sulfate 325 mg (65 mg 325 mg PO DAILY 02/12/25 02/12/25 History iron) tablet (Janna-Time) finasteride 5 mg tablet 5 mg PO DAILY 02/12/25 02/12/25 History polyethylene glycol 3350 17 17 g PO DAILY PRN constipation 02/12/25 02/12/25 History gram/dose oral powder (ClearLax) pyridostigmine bromide 60 mg tablet 30 mg PO DAILY 02/12/25 02/12/25 History Allergies Allergy/AdvReac Type Severity Reaction Status Date / Time No Known Allergies Allergy Verified 02/12/25 04:53 Vital Signs Vital Signs - 24 hr 02/11/25 16:35 02/11/25 20:12 02/11/25 22:41 Temperature 97.8 F 97.9 F Pulse Rate 68 62 59 L Respiratory Rate 17 18 Blood Pressure 106/57 L 136/76 Pulse Oximetry 100 98 Oxygen Delivery Room Air 02/11/25 22:43 02/11/25 22:45 02/11/25 22:47 Temperature Pulse Rate 65 54 L 60 Respiratory Rate 16 11 L 11 L Blood Pressure 122/79 135/74 Pulse Oximetry 98 98 98 Oxygen Delivery 02/11/25 23:00 02/11/25 23:01 02/11/25 23:07 Temperature Pulse Rate 67 63 64 Respiratory Rate 20 17 12 Blood Pressure 159/126 H 110/74 Pulse Oximetry 98 Oxygen Delivery 02/11/25 23:15 02/11/25 23:21 02/11/25 23:30 Temperature Pulse Rate 59 L 62 67 Respiratory Rate 14 14 13 Blood Pressure 110/74 Pulse Oximetry 98 99 Oxygen Delivery 02/11/25 23:45 02/12/25 00:00 02/12/25 00:03 Temperature Pulse Rate 59 L 56 L 58 L Respiratory Rate 15 17 13 Blood Pressure 122/77 Pulse Oximetry Oxygen Delivery 02/12/25 00:15 02/12/25 05:06 Temperature 97.1 F L Pulse Rate 56 L 53 L Respiratory Rate 14 18 Blood Pressure 148/74 H Pulse Oximetry 99 Oxygen Delivery Results Labs Labs: Short CBC 02/11/25 02/11/25 02/12/25 Range/Units 21:53 23:23 02:33 WBC 6.0 (4.5-10.0) K/mm3 Hgb 14.0 13.2 L 12.6 L (14.0-18.0) g/dL Hct 41.5 L 39.8 L 37.7 L (42.0-52.0) % Plt Count 195 (150-375) k/mm3 02/12/25 Range/Units 06:00 WBC 5.2 (4.5-10.0) K/mm3 Hgb 12.3 L (14.0-18.0) g/dL Hct 37.2 L (42.0-52.0) % Plt Count 156 (150-375) k/mm3 BMP 02/11/25 02/12/25 21:53 06:00 Sodium 136 L 136 L Potassium 3.6 3.4 Chloride 106 109 H Carbon Dioxide 26 25 BUN 20 17 Creatinine 0.89 0.86 Glucose 129 H 95 Calcium 9.2 8.4 Cardiac Enzymes 02/11/25 Range/Units 23:29 Troponin I 0.016 (0.000-0.034) ng/mL Liver Function 02/11/25 Range/Units 21:53 Total Bilirubin 0.8 (0.2-1.3) mg/dL AST 28 (17-59) U/L ALT 18 (6-50) U/L Alkaline Phosphatase 75 (38-126) U/L Albumin 3.9 (3.5-5.1) g/dL Urine 02/11/25 Range/Units 23:09 Urine Color [place] (Yellow) Urine Appearance Turbid H (Clear) Urine pH 8.5 (5.0-9.0) Ur Specific [place] 1.016 (1.001-1.035) Urine Protein 2+ H (Negative) mg/dL Urine Glucose (UA) Negative (Negative) mg/dL Quality VTE Prophylaxis VTE prophylaxis: mechanical ordered Assessment and Plan Assessment and plan (1) Acute UTI: Code(s): N39.0 - Urinary tract infection, site not specified Status: Acute Assessment and Plan: Patient is not symptomatic IV antibiotics Rocephin started in ED 02/12 UC pending (2) Staghorn calculus: Code(s): N20.0 - Calculus of kidney Status: Acute Assessment and Plan: Urology consulted (3) Bladder stone: Code(s): N21.0 - Calculus in bladder Status: Acute Assessment and Plan: See above (4) Anemia: Code(s): D64.9 - Anemia, unspecified Status: Acute Assessment and Plan: Patient started on ferrous sulfate daily Will get anemic labs (5) GI bleed: Code(s): K92.2 - Gastrointestinal hemorrhage, unspecified Status: Acute Assessment and Plan: Last stool with blood- Patient states he has not had a bowel movement since 02/07 Chronic anemia Occult blood pending May consult GI
--- NOTE | 2025-02-12 10:56 | WPDURCON ---
Assessment and Plan Assessment and plan (1) Staghorn calculus: Code(s): N20.0 - Calculus of kidney Status: Acute Assessment and Plan: - Reviewed CT A/P which demonstrates 3.4 cm Right staghorn calculus - Discussed indication for PCNL; pt states that he follows with urology at the [facility] and will pursue treatment there - No significant hydronephrosis, creatinine stable at 0.9 - No urgent surgical intervention indicated at this time (2) BPH (benign prostatic hyperplasia): Qualifiers: Lower urinary tract symptom presence: symptoms present Lower urinary tract symptom detail: urinary frequency Qualified Code(s): N40.1 - Benign prostatic hyperplasia with lower urinary tract symptoms; R35.0 - Frequency of micturition Code(s): N40.0 - Benign prostatic hyperplasia without lower urinary tract symptoms Status: Acute Assessment and Plan: - On finasteride - Trialed alpha brigid in the past but discontinued due to significant dizziness - May ultimately benefit from bladder outlet procedure; pt to discuss as outpatient with [facility] - Question of bladder stone, however, on review of imaging suspect this is an intramural calcification which can be throughout posterior bladder wall and prostate (3) Acute UTI: Code(s): N39.0 - Urinary tract infection, site not specified Status: Acute Assessment and Plan: - UA concerning for UTI - Continue broad spectrum Abx until UCx results - Transition to PO Abx based on susceptbility profile once avaibable Plan Urology to follow peripherally; please call with further questions Will provide follow up information should pt desire to follow with [facility] Consult Note HPI Date Seen: 02/12/25 Requesting Physician: Guanaco barros Oca, MD Primary Care Provider: [facility] Consult Narrative Narrative: Pt is a 79 year old M with Hx of BPH managed with finasteride admitted for concern for GI bleed incidentally found to have Right staghorn calculus for whom urology is consulted for stone management. Pt states that he has a remote Hx of kidney stones which were managed with URS but it has been 10+ years without any known stones. Denies Right flank pain, recurrent gross hematuria, dysuria, hematuria. Does have some refractory frequency and weak stream which he follows with urology at the [facility] for. Taking finasteride; previously on alpha brigid but with significant dizziness. Review of Systems Review of Systems: All systems reviewed & are unremarkable except as noted in HPI and below Constitutional: Constitutional: Denies body ache(s), Denies chills, Reports lethargy and Reports weakness Cardiovascular: Cardiovascular: Denies no additional cardiovascular complaints and Denies chest pain Respiratory: Respiratory: Denies chest congestion, Denies cough, Denies hemoptysis and Denies dyspnea Gastrointestinal: Gastrointestinal: Reports as per HPI, Reports melena and Reports constipation Genitourinary: Genitourinary: Reports as per HPI and Reports hematuria Musculoskeletal: Musculoskeletal: Denies no additional musculoskeletal complaints Neurologic: Denies Abnormal speech present, Denies abnormal gait, Denies confusion and Denies headache(s) Psychiatric: Psychiatric: Denies anxiety, Denies confusion, Denies depression and Denies suicidal ideation [facility] Past Medical History Medical History Coronary artery disease Hyperlipidemia Hypertension Surgical History Surgical History History of coronary angioplasty with insertion of stent Family History Family History Sibling Patient's sister is in good health Patient's brother is in good health Mother Family history of congestive heart failure, Onset Age: 92 Patient's mother is Father Patient's father is Social History Social History Smoking packs per day: 1 Smoking cigarettes per day: 20.0 Years smoked: 53 Smoking pack-years: 53.00 Smoking status: Current every day smoker Tobacco type: cigarettes Alcohol intake: former Substance use: never Substance use type: does not use Lack of Transportation: No Lack of Food: Never True Current Housing: I Have Housing Concerned About Future Housing: No Difficulty Paying Gas/Electric Bills: No Difficulty Paying for Meds: No Currently Unemployed: No Education: High School Diploma/GED Difficulty w/ Childcare or Family Care: YES Gender identity (if verbalized by the patient): Male Spiritual care concerns: No Meds Home Medications and Allergies Home Medications ?Medication ?Instructions ?Recorded ?Confirmed ?Type aspirin 81 mg tablet 81 mg PO DAILY 07/09/21 02/12/25 History atorvastatin 40 mg PO HS 07/09/21 02/12/25 History capsaicin 0.025 % topical cream 1 applic topical QID 07/10/21 02/12/25 History cholecalciferol (vitamin D3) 10 10 mcg PO DAILY 02/12/25 02/12/25 History mcg (400 unit) capsule ferrous sulfate 325 mg (65 mg 325 mg PO DAILY 02/12/25 02/12/25 History iron) tablet (Janna-Time) finasteride 5 mg tablet 5 mg PO DAILY 02/12/25 02/12/25 History polyethylene glycol 3350 17 17 g PO DAILY PRN constipation 02/12/25 02/12/25 History gram/dose oral powder (ClearLax) pyridostigmine bromide 60 mg tablet 30 mg PO DAILY 02/12/25 02/12/25 History Allergies Allergy/AdvReac Type Severity Reaction Status Date / Time No Known Allergies Allergy Verified 02/12/25 04:53 Vital Signs Vital Signs - 24 hr 02/11/25 16:35 02/11/25 20:12 02/11/25 22:41 Temperature 36.6 C 36.6 C Pulse Rate 68 62 59 L Respiratory Rate 17 18 Blood Pressure 106/57 L 136/76 Pulse Oximetry 100 98 Oxygen Delivery Room Air 02/11/25 22:43 02/11/25 22:45 02/11/25 22:47 Temperature Pulse Rate 65 54 L 60 Respiratory Rate 16 11 L 11 L Blood Pressure 122/79 135/74 Pulse Oximetry 98 98 98 Oxygen Delivery 02/11/25 23:00 02/11/25 23:01 02/11/25 23:07 Temperature Pulse Rate 67 63 64 Respiratory Rate 20 17 12 Blood Pressure 159/126 H 110/74 Pulse Oximetry 98 Oxygen Delivery 02/11/25 23:15 02/11/25 23:21 02/11/25 23:30 Temperature Pulse Rate 59 L 62 67 Respiratory Rate 14 14 13 Blood Pressure 110/74 Pulse Oximetry 98 99 Oxygen Delivery 02/11/25 23:45 02/12/25 00:00 02/12/25 00:03 Temperature Pulse Rate 59 L 56 L 58 L Respiratory Rate 15 17 13 Blood Pressure 122/77 Pulse Oximetry Oxygen Delivery 02/12/25 00:15 02/12/25 05:06 02/12/25 08:00 Temperature 36.2 C L Pulse Rate 56 L 53 L Respiratory Rate 14 18 Blood Pressure 148/74 H Pulse Oximetry 99 Oxygen Delivery Room Air Exam Const: General: comfortable and no acute distress HENMT: Face/Nose/Sinus: Normal nares present Eyes: General: appearance normal, both eyes and all related structures Resp: Effort & Inspection: normal respiratory effort GI: Inspection: non-distended Skin: General skin exam: normal color Neuro: Speech: normal speech Psych: Speech and movement: Normal speech and movement present Results Labs 02/12/25 06:00 02/12/25 06:00 Labs: Short CBC 02/11/25 02/11/25 02/12/25 Range/Units 21:53 23:23 02:33 WBC 6.0 (4.5-10.0) K/mm3 Hgb 14.0 13.2 L 12.6 L (14.0-18.0) g/dL Hct 41.5 L 39.8 L 37.7 L (42.0-52.0) % Plt Count 195 (150-375) k/mm3 02/12/25 Range/Units 06:00 WBC 5.2 (4.5-10.0) K/mm3 Hgb 12.3 L (14.0-18.0) g/dL Hct 37.2 L (42.0-52.0) % Plt Count 156 (150-375) k/mm3 BMP 02/11/25 02/12/25 21:53 06:00 Sodium 136 L 136 L Potassium 3.6 3.4 Chloride 106 109 H Carbon Dioxide 26 25 BUN 20 17 Creatinine 0.89 0.86 Glucose 129 H 95 Calcium 9.2 8.4 Cardiac Enzymes 02/11/25 Range/Units 23:29 Troponin I 0.016 (0.000-0.034) ng/mL Liver Function 02/11/25 Range/Units 21:53 Total Bilirubin 0.8 (0.2-1.3) mg/dL AST 28 (17-59) U/L ALT 18 (6-50) U/L Alkaline Phosphatase 75 (38-126) U/L Albumin 3.9 (3.5-5.1) g/dL Urine 02/11/25 Range/Units 23:09 Urine Color [place] (Yellow) Urine Appearance Turbid H (Clear) Urine pH 8.5 (5.0-9.0) Ur Specific [place] 1.016 (1.001-1.035) Urine Protein 2+ H (Negative) mg/dL Urine Glucose (UA) Negative (Negative) mg/dL
--- NOTE | 2025-02-12 13:12 | PM.SD2 ---
Same Day Admit/Disch: HPI History of Present Illness Chief complaint: UTI Narrative: 79 year old male presenting with concerns for dark stools and weakness. He states he has been constipated for about two weeks. Patient was able to have a bowel movement last Tuesday by Tuesday he was reporting dark solid stools both times. He has not had a bowel movement since. Denies abdominal pain, nausea/vomiting, urinary concerns, chest pain/shortness of breath. 02/12- Patient is focused on discharge back home to take care of his and daughter. Patient states he has had these same symptoms of dark stools 3 years ago. He was given mirlax and states he does not take it regularly but when he does he does not have GI symptoms. Patient reports last bowel movement was on 02/07 with no concerns for dark or bloody stools.He states he has been going to the OR for most of his care and would like to return back there to finish his treatment. He reports he will follow up with his GI specialist Dr. Lema, urologist and PCP. [facility] [place] Past Medical History Medical History Coronary artery disease Hyperlipidemia Hypertension Surgical History Surgical History History of coronary angioplasty with insertion of stent Family History Family History Sibling Patient's sister is in good health Patient's brother is in good health Mother Family history of congestive heart failure, Onset Age: 92 Patient's mother is Father Patient's father is Social History Social History Smoking packs per day: 1 Smoking cigarettes per day: 20.0 Years smoked: 53 Smoking pack-years: 53.00 Smoking status: Current every day smoker Tobacco type: cigarettes Alcohol intake: former Substance use: never Substance use type: does not use Lack of Transportation: No Lack of Food: Never True Current Housing: I Have Housing Concerned About Future Housing: No Difficulty Paying Gas/Electric Bills: No Difficulty Paying for Meds: No Currently Unemployed: No Education: High School Diploma/GED Difficulty w/ Childcare or Family Care: YES Gender identity (if verbalized by the patient): Male Spiritual care concerns: No Same Day Admit/Disch: Med Pre-admit Medications Home Medications ?Medication ?Instructions ?Recorded ?Confirmed ?Type aspirin 81 mg tablet 81 mg PO DAILY 07/09/21 02/12/25 History atorvastatin 40 mg PO HS 07/09/21 02/12/25 History capsaicin 0.025 % topical cream 1 applic topical QID 07/10/21 02/12/25 History cefdinir 300 mg capsule 300 mg PO Q12H 5 days #10 caps 02/12/25 Rx cholecalciferol (vitamin D3) 10 10 mcg PO DAILY 02/12/25 02/12/25 History mcg (400 unit) capsule ferrous sulfate 325 mg (65 mg 325 mg PO DAILY 02/12/25 02/12/25 History iron) tablet (Janna-Time) finasteride 5 mg tablet 5 mg PO DAILY 02/12/25 02/12/25 History polyethylene glycol 3350 17 17 g PO DAILY PRN constipation 02/12/25 02/12/25 History gram/dose oral powder (ClearLax) pyridostigmine bromide 60 mg tablet 30 mg PO DAILY 02/12/25 02/12/25 History Review of Systems Review of Systems All systems reviewed & are unremarkable except as noted in HPI and below Constitutional Constitutional: Denies body ache(s), Denies chills, Denies headache(s), Denies lethargy and Reports weakness ENT Denies headache(s) Cardiovascular Cardiovascular: Denies no additional cardiovascular complaints, Denies chest pain and Denies dyspnea Respiratory Respiratory: Denies chest congestion, Denies cough, Denies hemoptysis and Denies dyspnea Gastrointestinal Gastrointestinal: Reports as per HPI, Reports melena and Reports constipation Genitourinary Genitourinary: Reports as per HPI and Reports hematuria Musculoskeletal Musculoskeletal: Denies no additional musculoskeletal complaints and Denies abnormal gait Neurologic Denies Abnormal speech present, Denies abnormal gait, Denies confusion, Denies headache(s) and Reports weakness Psychiatric Psychiatric: Denies anxiety, Denies confusion, Denies depression and Denies suicidal ideation Exam Const: General: cooperative, comfortable and no acute distress Nutritional Appearance: well nourished Orientation/consciousness: oriented to person, oriented to place and oriented to time Limitations: no limitations HENMT: Head: normal to inspection Eyes: General: appearance normal, both eyes and all related structures Neck: Neck: full ROM Chest: Chest palpation & inspection: normal inspection of the chest and normal palpation of entire chest wall Resp: Effort & Inspection: normal respiratory effort and able to speak in complete sentences Auscultation: clear to auscultation bilaterally Cardio: Palpation: normal PMI Rate: regular rate Rhythm: regular rhythm GI: Inspection: normal to inspection GI Palp: No abdominal tenderness Back/Spine/Pelvis: Back: no CVA tenderness Skin: General skin exam: normal color Neuro: General: oriented to person, oriented to place and oriented to time Speech: normal speech Gait exam (Neuro): Normal gait present DS: Data Data Completed and Pending Labs on day of discharge: Labs from last 24 hours 02/12/25 02/12/25 02/11/25 06:00 02:33 23:29 WBC 5.2 RBC 3.97 L Hgb 12.3 L 12.6 L Hct 37.2 L 37.7 L MCV 93.7 MCH 31.0 MCHC 33.1 RDW 13.6 Plt Count 156 MPV 11.5 H Immature Gran % (Auto) Neut % (Auto) Lymph % (Auto) [place] % (Auto) Eos % (Auto) Baso % (Auto) Lymph # (Auto) [place] # (Auto) Eos # (Auto) Baso # (Auto) Abs Immat Gran (auto) Absolute Neuts (auto) Absolute Nucleated RBC Nucleated RBC % PT INR APTT Sodium 136 L Potassium 3.4 Chloride 109 H Carbon Dioxide 25 Anion Gap 2 L BUN 17 Creatinine 0.86 Estim Creat Clear Calc 66 Estimated GFR > 60 Glucose 95 Lactic Acid Calcium 8.4 Magnesium 2.3 Total Bilirubin AST ALT Alkaline Phosphatase Troponin I 0.016 Total Protein Albumin Lipase 279 Urine Color Urine Appearance Urine pH Ur Specific [place] Urine Protein Urine Glucose (UA) Urine Ketones Ur Blood (Man) Urine Nitrate Urine Bilirubin Urine Urobilinogen Add Ur Microanalysis Leukocyte Esterase Rfl Urine RBC Urine WBC Ur Squamous Epith Cells Urine Bacteria Urine Casts Stl Occult Blood (IFOB) Blood Type Antibody Screen 02/11/25 02/11/25 02/11/25 23:23 23:09 21:55 WBC RBC Hgb 13.2 L Hct 39.8 L MCV MCH MCHC RDW Plt Count MPV Immature Gran % (Auto) Neut % (Auto) Lymph % (Auto) [place] % (Auto) Eos % (Auto) Baso % (Auto) Lymph # (Auto) [place] # (Auto) Eos # (Auto) Baso # (Auto) Abs Immat Gran (auto) Absolute Neuts (auto) Absolute Nucleated RBC Nucleated RBC % PT INR APTT Sodium Potassium Chloride Carbon Dioxide Anion Gap BUN Creatinine Estim Creat Clear Calc Estimated GFR Glucose Lactic Acid 1.6 Calcium Magnesium Cancelled Total Bilirubin AST ALT Alkaline Phosphatase Troponin I Total Protein Albumin Lipase Cancelled Urine Color [place] Urine Appearance Turbid H Urine pH 8.5 Ur Specific [place] 1.016 Urine Protein 2+ H Urine Glucose (UA) Negative Urine Ketones Negative Ur Blood (Man) 3+ H Urine Nitrate Positive H Urine Bilirubin Negative Urine Urobilinogen 1.0 Add Ur Microanalysis Reviewed Leukocyte Esterase Rfl 3+ H Urine RBC >100 H Urine WBC >100 H Ur Squamous Epith Cells None seen Urine Bacteria 4+ H Urine Casts >20 Stl Occult Blood (IFOB) Pending Blood Type Antibody Screen 02/11/25 21:53 WBC 6.0 RBC 4.54 L Hgb 14.0 Hct 41.5 L MCV 91.4 MCH 30.8 MCHC 33.7 RDW 13.5 Plt Count 195 MPV 11.1 H Immature Gran % (Auto) 0.2 Neut % (Auto) 57.4 Lymph % (Auto) 28.5 C[place]shaw % (Auto) 9.3 H Eos % (Auto) 3.8 Baso % (Auto) 0.8 Lymph # (Auto) 1.71 [place] # (Auto) 0.6 Eos # (Auto) 0.2 Baso # (Auto) 0.1 Abs Immat Gran (auto) 0.01 Absolute Neuts (auto) 3.4 Absolute Nucleated RBC 0.000 Nucleated RBC % 0.0 PT 14.3 INR 1.1 APTT 20.7 L Sodium 136 L Potassium 3.6 Chloride 106 Carbon Dioxide 26 Anion Gap 4 BUN 20 Creatinine 0.89 Estim Creat Clear Calc 64 Estimated GFR > 60 Glucose 129 H Lactic Acid Calcium 9.2 Magnesium Total Bilirubin 0.8 AST 28 ALT 18 Alkaline Phosphatase 75 Troponin I Total Protein 7.3 Albumin 3.9 Lipase Urine Color Urine Appearance Urine pH Ur Specific [place] Urine Protein Urine Glucose (UA) Urine Ketones Ur Blood (Man) Urine Nitrate Urine Bilirubin Urine Urobilinogen Add Ur Microanalysis Leukocyte Esterase Rfl Urine RBC Urine WBC Ur Squamous Epith Cells Urine Bacteria Urine Casts Stl Occult Blood (IFOB) Blood Type O Positive Antibody Screen Negative DS: Summary Hospital Course Reason for hospitalization: GI bleed Hospital Course: 79 year old male presented to the ED via EMS due to having dark stools. Patient states he has been constipated for about two weeks and was not able to have a bowel movement since the past Tuesday. When patient did have a bowel movement on the following Tuesday he reported two different occasions of having dark solid stools. He did not have a bowel movement since than. Patient also reports when he went to go urinate, he noticed that his urine was slightly red. He states the second time he went to go urinate it has clear for the most part. Patient reports feeling a little weakness after urinating. Patient denied chronic use of NSAIDs. Patient denies being symptomatic- no GI pain, no urinary pain, no fever, no confusion and no sense of fullness. A urine sample was obtained. Urology consulted with recs for broad spectrum abx until UC results, in which the pt declines because he wants to go to the OR for care. The patient has had a short stay inpatient stay. A stool occult blood sampled was ordered and collected last night but the sample was not placed in the correct specimen and was lost. 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 He stated he would prefer to follow up with his GI and PCP at the OR and is eager to leave. Today the patient has not had any bloody or dark stools. He denies seeing red in his urine. Patient denies pain, constipation, fever, chills, or burning sensation during urination. Patient hemoglobin has been collected and is stable. Patient is hemodynamically stable and is ready for discharge. Patient states his daughter will pick him up. Patient was encouraged to follow up with PCP and to report back to the ED if symptoms reoccur. Status at Discharge Overall status at discharge: patient is progressing back to baseline Time Spent with Patient Time attestation: Total time spent providing and/or coordinating discharge services: Time spent: Greater than 30 minutes DS: Admitting Diagnosis Discharge Date 02/12/2025 Admitting Diagnosis GI bleed, UTI DS: Discharge Diagnosis Discharge Diagnosis (1) Acute UTI: Code(s): N39.0 - Urinary tract infection, site not specified Status: Acute Assessment and Plan: Patient is not symptomatic IV antibiotics Rocephin started in ED 02/12 but discontinued while inpt because pt refusing [facility] Pt educated on this matter but still persistent to leave. (2) Staghorn calculus: Code(s): N20.0 - Calculus of kidney Status: Acute Assessment and Plan: Urology consulted and stated: Urology to follow peripherally; please call with further questions Will provide follow up information should pt desire to follow with [facility]. (3) Bladder stone: Code(s): N21.0 - Calculus in bladder Status: Acute Assessment and Plan: See above (4) GI bleed: Code(s): K92.2 - Gastrointestinal hemorrhage, unspecified Status: Acute Assessment and Plan: Patient states he has not had a bowel movement since 02/07 Patient denies dark stool Patient will follow up with GI specialist at OR, reports that he is UTD with cscope guidelines via his PCP Plan Pt to discharge home with Urology and GI team. Discharge Plan Discharge Attending physician on discharge: Alexis Rios Consulting providers: Gus Burt; Ezequiel Menezes Discharging Clinician: Ezequiel Menezes Anticipated Discharge Date/Time: 02/12/25 15:00 Patient Disposition: Home Activity: as tolerated Diet: as tolerated Discharge Instructions: 1. Promptly follow-up with your primary care provider AND gastrointestinal provider at the OR to take care of your newly diagnosed urological issues that the urologist saw you here for and for your dark stools / constipation. Continue to take your blood pressure / blood sugars as indicated. Report back to the nearest ER for chest pain, shortness of breath, bleeding per rectum, temp consistently over 102, seizure like activity or any other abnormal symptoms. Patient Instructions: Antibiotic Form, How to Stop Smoking (ED), Constipation (GEN), Urinary Tract Infection in Men (GEN), Melena (GEN) Patient Language: Cymraes Stand Alone Forms: General Discharge Information Follow-up/Referrals: [facility] [Primary Care Provider, Medical] - 2 Weeks Referral Note: Follow up with PCP in 2 weeks Problems: Acute UTI; GI bleed Discharge Medications: New cefdinir 300 mg capsule 300 mg PO Q12H 5 Days Qty: 10 0RF Continued polyethylene glycol 3350 [ClearLax] 17 gram/dose powder 17 g PO DAILY PRN (Reason: constipation) cholecalciferol (vitamin D3) 10 mcg (400 unit) capsule 10 mcg PO DAILY ferrous sulfate [Janna-Time] 325 mg (65 mg iron) tablet 325 mg PO DAILY pyridostigmine bromide 60 mg tablet 30 mg PO DAILY finasteride 5 mg tablet 5 mg PO DAILY aspirin 81 mg Tablet 81 mg PO DAILY atorvastatin 40 mg PO HS capsaicin 0.025 % Cream 1 applic TOPICAL QID Date of admission: 02/12/25 03:26 Primary Care Provider: [facility] Admitting Provider: Guanaco Taylor Oca Attending physician on admission: Guanaco Taylor Oca Condition: Stable Quality VTE Prophylaxis VTE prophylaxis: mechanical ordered Hospitalist MIPS Advance Care Plan I have confirmed that the patient's Advanced Care Plan is present, code status is documented, or surrogate decision maker is listed in patient medical record.: Yes The patient's Advanced Care plan is not present because:: Patient doesn't want to name surrogate or provider advance care plan Medication Reconciliation I have utilized all available resources to obtain, update and review the patients current medications (includes all prescriptions, OTC, herbals, cannabis, and nutritional supplements).: Yes The patient is not eligible for med reconciliation; the patient is in a emergent medical situation where delaying treatment would jeopardize the patients health.: No Heart Failure (Exclusion) Patient has history of Heart Transplant or Left Ventricular Assistive Device?: No IF YES, STOP HERE Heart Failure (Qualifier) Patient has current or prior documentation of LVEF less than or equal to 40%, or mod/servere depressed LVSF?: No IF NO, STOP HERE
[2025-02-12 13:20] LABS: Hematocrit 38.2 % (42.0-52.0); Hemoglobin 12.7 g/dL (14.0-18.0)
--- NOTE | 2025-02-13 08:10 | PC.NURSE ---
Left message with patient regarding calling in an antibiotic for his UTI. Called Cefdinir 300 mg by mouth every 12 hours for 5 days. [place] into [facility] [place]
== END 2025-02-12 14:58 | disposition home or self-care (01) ==
LOC: ANHED 02-12 03:27 → ANH2MED 02-12 05:02
PROVIDERS: Nurse Practitioner; Student in an Organized Health Care Education/Training Program; Admitting Provider Student in an Organized Health Care Education/Training Program; Emergency Provider Student in an Organized Health Care Education/Training Program; Visit Provider Internal Medicine
DX: N20.0 Calculus of kidney (principal); N40.1 Benign prostatic hyperplasia with lower urinary tract symptoms; R35.0 Frequency of micturition; K92.2 Gastrointestinal hemorrhage, unspecified; N39.0 Urinary tract infection, site not specified; I25.10 Atherosclerotic heart disease of native coronary artery without angina pectoris; I10 Essential (primary) hypertension; E78.5 Hyperlipidemia, unspecified; R94.31 Abnormal electrocardiogram [ECG] [EKG]; F17.210 Nicotine dependence, cigarettes, uncomplicated; Z79.82 Long term (current) use of aspirin; Z95.5 Presence of coronary angioplasty implant and graft; Z82.49 Family history of ischemic heart disease and other diseases of the circulatory system
CPT/HCPCS: 36415; 71045; 74174; 80048; 80053; 81001; 83605; 83690; 83735; 84484; 85014; 85018; 85025; 85027; 85610; 85730; 86850; 86900; 86901; 87086; 87186; 93005; 96365; 96375; 99285; A9270; G0378; J0696; J2470; J7030; Q9967